=== PATIENT | female | born 1970 | race Caucasian/White ===

== ENCOUNTER → 2019-11-26 07:56 | Outpatient (CLI) | payer OTHER, SELFPAY ==
--- NOTE | ~2019-11-26 | MR_ITS ---
EXAMINATION: MR foot RT wo con DATE: 11/26/2019 08:58 INDICATION: Ruptured sesamoid apparatus at the right foot presenting with pain and numbness at the gr eat toe. TECHNIQUE: Magnetic resonance imaging (MRI) of the right fore/mid foot was performed without intraven ous contrast. Sequences included sagittal T1-weighted FSE, sagittal fluid sensitive FSE STIR, coronal PD-weighted FS FSE, coronal T1-weighted FSE, axial PD-weighted FS FSE, and axial PD-weighted FSE. COMPARISON: None FINDINGS: There is a high-grade partial if not complete tear of the ulnar collateral ligament complex of the fi rst metatarsophalangeal joint with minimal medial subluxation and varus angulation at the first metat arsophalangeal joint. The tear involves the lateral aspect of the plantar plate with mild proximal re traction of the fibular sesamoid relative to the normally positioned tibial sesamoid. The medial darryl ateral ligament and medial side of the plantar plate remains intact. There is callus formation and periostitis centered at the distal diaphysis of the second metatarsal w ith increased signal in the medial sided cortex and underlying marrow edema consistent with high-grad e stress injury/incomplete nondisplaced stress fracture. Otherwise normal marrow signal throughout. J oint spaces are relatively preserved. Likely reactive small joint effusion at the first metatarsophal angeal joint. Lisfranc ligament complex and remaining collateral ligament complexes at the remaining metatarsophalangeal joints and interphalangeal joints are normal. Aside from the previous noted later al sided plantar plate tear at the base of the first proximal phalanx the visualized portions of the flexor and extensor tendons are normal. Intrinsic musculature of the foot is unremarkable aside from the edema in the musculature along the second metatarsal diaphysis. IMPRESSION: 1. Mild hallux varus resulting from a tear of the first metatarsophalangeal medial collateral ligamen t complex and medial side of the plantar plate. 2. High-grade stress injury/incomplete stress fracture at the distal diaphysis of the second metatars al. Reviewed, dictated and finalized at location B. IMPRESSION: 1. Mild hallux varus resulting from a tear of the first metatarsophalangeal med ial collateral ligament complex and medial side of the plantar plate. 2. High-grade stress injury/incomplete stress fracture at the distal diaphysis of the second metatarsal.
== END ==
PROVIDERS: Visit Provider Podiatrist Foot & Ankle Surgery
DX: S96.811A Strain of other specified muscles and tendons at ankle and foot level, right foot, initial encounter (principal); M84.374A Stress fracture, right foot, initial encounter for fracture
CPT/HCPCS: 73718

== ENCOUNTER → 2019-12-13 15:21 | Outpatient (CLI) | payer OTHER, SELFPAY ==
--- NOTE | ~2019-12-13 | XR_ITS ---
EXAMINATION: XR humerus RT DATE: 12/13/2019 15:45 INDICATION: Right humerus pain. TECHNIQUE: 2 views of right humerus were obtained. COMPARISON: None. FINDINGS: Bone alignment is normal. No fracture. Glenohumeral joint is normal. There is mild acromioc lavicular joint osteoarthritis. IMPRESSION: 1. Mild right acromioclavicular joint osteoarthritis. Reviewed, dictated and finalized at location A.
== END ==
PROVIDERS: PCP Family Medicine; Visit Provider Family Medicine
DX: M19.011 Primary osteoarthritis, right shoulder (principal)
CPT/HCPCS: 73060

== ENCOUNTER 2019-12-14 15:12 | Outpatient (CLI) | payer OTHER, SELFPAY ==
--- NOTE | ~2019-12-14 | MM_ITS ---
EXAMINATION: MM screening miley BI w lashay HISTORY: Screening mammogram TECHNIQUE: Craniocaudal and mediolateral oblique 3-D tomosynthesis images were obtained and synthetic 2-D images were generated. CAD analysis was submitted and interpreted. COMPARISON: 11/02/2018, 10/14/2017, 10/01/2016 bilateral digital screening mammogram examinations BREAST PARENCHYMAL COMPOSITION: There are scattered areas of fibroglandular density. FINDINGS: . There is no evidence of suspicious mass, calcification, or architectural distortion to knox ggest malignancy in either breast. There has been no suspicious interval change. IMPRESSION: 1. No mammographic evidence of malignancy. 2. Recommend routine screening mammography in one year. BI-RADS Category 1: Negative Reviewed, dictated and finalized at location A.
== END 2019-12-14 15:13 | disposition home or self-care (01) ==
PROVIDERS: PCP Family Medicine; Visit Provider Family Medicine
DX: Z12.31 Encounter for screening mammogram for malignant neoplasm of breast (principal)
CPT/HCPCS: 77063; 77067

== ENCOUNTER → 2020-05-29 00:22 | Outpatient (CLI) | payer OTHER, SELFPAY ==
[2020-05-29 19:08] LABS: SARS-CoV-2 RNA PCR Negative
== END ==
PROVIDERS: PCP Family Medicine; Visit Provider Podiatrist Foot & Ankle Surgery
DX: Z01.812 Encounter for preprocedural laboratory examination (principal); Z20.822 Contact with and (suspected) exposure to COVID-19
CPT/HCPCS: C9803; U0003; U0005

== ENCOUNTER 2020-05-29 09:04 | Outpatient (CLI) | payer OTHER, SELFPAY ==
--- NOTE | 2020-05-29 09:09 | ECG_ITS ---
Measurements Intervals [place] Rate: 69 P: 36 WV: 141 QRS: 3 QRSD: 81 T: 22 QT: 374 QTc: 402 Interpretive Statements SINUS RHYTHM LOW QRS VOLTAGE IN PRECORDIAL LEADS BORDERLINE R WAVE PROGRESSION, ANTERIOR LEADS BASELINE ARTIFACT- II, III, AVF BORDERLINE ECG Electronically Signed On 05-29-2020 9:30:38 THERAPIST by Narciso Henao D.O.
== END 2020-05-29 09:05 | disposition home or self-care (01) ==
PROVIDERS: Visit Provider Podiatrist Foot & Ankle Surgery
DX: Z01.818 Encounter for other preprocedural examination (principal); E11.9 Type 2 diabetes mellitus without complications
CPT/HCPCS: 93005

== ENCOUNTER 2020-06-01 00:22 | Day surgery (SDC) | payer OTHER, SELFPAY ==
[2020-05-28 13:19] VITALS: BMI 33.0
--- NOTE | 2020-05-31 13:39 | P.PNAN_ITS ---
Anes - Initial Pre Proc Eval Procedure: Operation Date: 06/01/20 07:30 Proposed Procedures p Arthrodesis Of The First Metatarsal Phalangeal Joint, Right Foot - Simon Sykes JR, MD Date/Time: 05/31/20 13:39 Surgeon: Simon Sykes JR, MD Pre Op Diagnosis: Jessica Medrano Right Foot Patient Data Age: 50 Gender: F Height: 1.57 m Weight: 81.8 kg Allergies Allergy/AdvReac Type Severity Reaction Status Date / Time No Known Allergies Allergy Mild Verified 05/28/20 13:10 Home Medications Medication Instructions Recorded Confirmed Type alprazolam 0.5 mg PO DAILY PRN 05/28/20 05/28/20 History cholecalciferol (vitamin D3) 50 mcg PO DAILY 05/28/20 05/28/20 History [Vitamin D3] mirabegron [Myrbetriq] 50 mg PO DAILY 05/28/20 05/28/20 History PMFSH Past Medical History Medical History (Updated 05/31/20 @ 13:40 by Jesús Roldan MD) Diabetes Obesity Osteoarthritis Social History Social History Smoking status: Former smoker Spiritual care concerns: No Anes - Eval Final PreProcedure Day of Procedure 05/31/20 13:39 Patient weight: obese Heart: regular rate and rhythm Lungs: clear to auscultation and normal air movement Airway: Mallampati scale class II Neurological: alert and oriented Last oral intake: >/= 8 hours ASA classification: III Emergent: no Anesthetic plan: proceed Anesthesia type and monitoring: general LMA Informed Consent: The patient's anesthetic plan and its attendant risks and benefits were discussed with the patient/family/POA. Questions were solicited an d answers provided to the satisfaction of the patient/family/POA.
[2020-06-01] VITALS (10 sets, daily range): BP systolic 94–126; BP diastolic 52–83; PULSE 74–92; RESP 12–21; TEMP 36.6–36.7; O2SAT 94–100; BMI 32.1
--- NOTE | ~2020-06-01 | XR_ITS ---
EXAMINATION: XR surgery orthopedic DATE: 06/01/2020 08:30 INDICATION: Right foot arthrodesis TECHNIQUE: Dorsal plantar and lateral fluoroscopic images of the right forefoot were obtained during procedure performed by Dr. Sykes. Radiologist was not present for the imaging or procedure. The am ount of fluoroscopy time used during this procedure was 0.1 minutes. COMPARISON: MRI dated 11/26/2019 FINDINGS: Right first metatarsophalangeal arthrodesis with dorsal plate and screw fixation. Alignment of the gr eat toe appears near-anatomic. The second toe is clawed. There is cortical thickening along the media l side of the neck of the second metatarsal likely related to previous noted stress injury. No acute fractures identified. Mild osteoarthritis at the first interphalangeal joint. IMPRESSION: 1. Expected appearance post first metatarsophalangeal arthrodesis with dorsal plate and screw fixatio n. 2. Cortical thickening consistent with chronic stress injury at the neck of the second metatarsal. Reviewed, dictated and finalized at location B. 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 Expected appearance post first metatarsophalangeal arthrodesis with dorsal p late and screw fixation. 2. Cortical thickening consistent with chronic stress injury at the neck of the second metatarsal.
--- NOTE | 2020-06-01 06:46 | WPDANESEPPF ---
Anes - Initial Pre Proc Eval Procedure: Operation Date: 06/01/20 07:30 Proposed Procedures p Arthrodesis Of The First Metatarsal Phalangeal Joint, Right Foot - Simon Sykes JR, MD Date/Time: 06/01/20 06:46 Surgeon: Simon Sykes JR, MD Pre Op Diagnosis: Jessica Medrano Right Foot Patient Data Age: 50 Gender: F Height: 5 ft 2 in Weight: 81.8 kg Allergies Allergy/AdvReac Type Severity Reaction Status Date / Time No Known Allergies Allergy Mild Verified 05/28/20 13:10 Home Medications Medication Instructions Recorded Confirmed Type alprazolam 0.5 mg PO DAILY PRN 05/28/20 05/28/20 History cholecalciferol (vitamin D3) 50 mcg PO DAILY 05/28/20 05/28/20 History [Vitamin D3] mirabegron [Myrbetriq] 50 mg PO DAILY 05/28/20 05/28/20 History Patient hx anesthesia problems: other (early awakening) Family hx anesthesia problems: none [facility] Past Medical History Medical History Diabetes Obesity Osteoarthritis Social History Social History Smoking status: Former smoker Living arrangements: with family Spiritual care concerns: No Anes - Eval Final PreProcedure Day of Procedure 06/01/20 06:46 Patient weight: obese Heart: regular rate and rhythm Lungs: clear to auscultation Airway: Mallampati scale class II Neurological: alert and oriented Last oral intake: >/= 8 hours ASA classification: III Emergent: no Anesthetic plan: proceed Anesthesia type and monitoring: general LMA and standard monitoring Informed Consent: The patient's anesthetic plan and its attendant risks and benefits were discussed with the patient/family/POA. Questions were solicited and answers provided to the satisfaction of the patient/family/POA.
[2020-06-01] MEDS: LACTATED RINGERS 1,000 ML 30 ML IV CONT ×2 (07:12→08:54)
--- NOTE | 2020-06-01 07:14 | WPDHPUPDATE1 ---
History and Physical Update Update Date/Time: 06/01/20 07:14 History and Physical has been reviewed, including an updated exam of the patient. There are NO changes in the patient's condition. Risks, benefits, and alternatives have been discussed and questions answered. Patient agrees to proceed with procedure.
[2020-06-01 07:19] LABS: Glucose Point of Care 119 (65-105)
[2020-06-01] MEDS: ceFAZolin 2 GM/D5W 50 ML 2 GM/50 ML BAG IVPB (07:23)
--- NOTE | 2020-06-01 08:56 | PM.PROC ---
Procedure Note - Detailed Date of procedure: 06/01/20 Pre-op diagnosis: Jessica Medrano Right Foot Hallux Varus deformity right foot Post-op diagnosis: same Procedure performed: Arthrodesis of the first metatarsal phalangeal joint right foot Implants: [employer] Cross check plate with one 3.5mm lag screw with four 2.7mm locking screw Anesthesia: GLMA and local Surgeon: Simon Sykes JR, DPM Estimated blood loss (mL): 1 Drains: No Packing: No Pathology: none sent Complications: No immediate complications Condition: stable Disposition: same day Findings: PROCEDURE IN DETAIL: Under mild sedation, the patient was brought into the operating room, placed on the operating table in supine position. A pneumatic ankle tourniquet was placed about the patient's right ankle. Following general LMA, a local anesthetic block was obtained about the foot and ankle utilizing 20 cc of Exparel. The foot was then scrubbed, prepped, and draped in the usual aseptic manner. An Esmarch bandage was then used to exsanguinate the patient's foot and the pneumatic ankle tourniquet was then inflated. Surgery began in the following manner: Attention was directed to the dorsal aspect of the 1st metatarsophalangeal joint where there was a large osteophyte noted along the dorsomedial aspect of the joint. The incision was made starting along the central shaft of the 1st metatarsal and extending just proximal to the interphalangeal joint of the hallux. The incision was continued deep down through the subcutaneous tissues using sharp and blunt dissection. All bleeders were cauterized as necessary. At this point, the dissection was continued down to the level of the periosteum and capsular structures overlying the 1st metatarsophalangeal joint. A full length periosteum and capsular incision was made just medial to the extensor hallucis longus tendon. The periosteum and capsular structures were freed from the base of the proximal phalanx as well as the distal 1st metatarsal. At this point, the 1st metatarsophalangeal joint was identified. There was almost complete loss of articular cartilage to the head of the 1st metatarsal as well as the base of the proximal phalanx. There was significant broadening and hypertrophy of the 1st metatarsophalangeal joint. Utilizing a sagittal bone saw, the hypertrophied 1st metatarsal was resected dorsally, medially, and laterally. A power bur was used to make sure that there were no rough edges and also to further debride the hypertrophic 1st metatarsal. Next, a rongeur was used to resect all hypertrophic base of the proximal phalanx. At this point, the reamer system for the AvistaCHECK system was used to denude the degenerative cartilage from the head of the 1st metatarsal as well as the base of the proximal phalanx. The cartilage and subchondral bone were fully debrided utilizing the reamer system until healthy bleeding bone was noted. Next, a 2-0 drill bit was used to further fenestrate the head of the 1st metatarsal as well as the base of the proximal phalanx in order to allow fusion across the 1st metatarsophalangeal joint. Next, a 0.045 inch K-wire was driven from the medial aspect of the base of the proximal phalanx into the head of the 1st metatarsal in order to serve as temporary fixation. A large steel plate was used to make sure that the hallux was in a rectus position both in the sagittal plane as well as the frontal and transverse plane. Excellent position of the hallux was noted. Next, a CrossCHECK plate was placed atop the 1st metatarsophalangeal joint held in position with Gibbs wires. Utilizing standard principles and techniques, the 2 distal drill holes were drilled and two 2.7 mm fully-threaded locking screws were driven from dorsal to plantar holding the distal aspect of the plate intact. At this point, a lag screw was driven from dorsal distal to proximal plantar across the 1st metatarsophalangeal usman
[2020-06-01] MEDS: fentaNYL CITRATE INJ (*CRX) 100 MCG/2 ML VIAL 25 MCG IV PUSH ×4 (09:06→09:16)
[2020-06-01] MEDS: ONDANSETRON INJ 4 MG/2 ML VIAL IV PUSH (09:43)
[2020-06-01 10:25] LABS: Glucose Point of Care 164 (65-105)
[2020-06-01] MEDS: SCOPOLAMINE 1.5 MG PATCH TRANSDERM (10:26)
== END 2020-06-01 11:35 | disposition home or self-care (01) ==
PROVIDERS: Visit Provider Podiatrist Foot & Ankle Surgery
PROC: (CPT 28750; principal; 2020-06-01 07:30)
DX: M20.31 Hallux varus (acquired), right foot (principal); E11.9 Type 2 diabetes mellitus without complications; M19.90 Unspecified osteoarthritis, unspecified site; E66.9 Obesity, unspecified; Z68.32 Body mass index [BMI] 32.0-32.9, adult; Z87.891 Personal history of nicotine dependence
CPT/HCPCS: 28750; 82948; 93005; A9270; C1713; C9290; C9803; J0690; J1170; J2250; J2405; J2704; J3010; J7120; U0003; U0005

== ENCOUNTER 2020-10-18 10:45 | Outpatient (RCR) | payer OTHER, SELFPAY ==
[2020-10-18 09:48] VITALS: BMI 33.3
[2020-10-18 09:50] VITALS: BMI 33.3
== END 2021-01-07 10:33 | disposition home or self-care (01) ==
LOC: ANHDMC 10:45
PROVIDERS: PCP Family Medicine; Visit Provider Family Medicine
DX: E11.9 Type 2 diabetes mellitus without complications (principal); Z71.3 Dietary counseling and surveillance; Z71.89 Other specified counseling
CPT/HCPCS: 97802; G0108

== ENCOUNTER 2021-01-12 08:36 | Outpatient (CLI) | payer OTHER, SELFPAY ==
--- NOTE | ~2021-01-12 | MM_ITS ---
EXAMINATION: MM screening miley BI w lashay HISTORY: Screening mammogram TECHNIQUE: Craniocaudal and mediolateral oblique 3-D tomosynthesis images were obtained and synthetic 2-D images were generated. CAD analysis was submitted and interpreted. COMPARISON: 12/14/2019, 11/02/2018, 10/14/2017 bilateral digital screening mammogram examinations. BREAST PARENCHYMAL COMPOSITION: There are scattered areas of fibroglandular density. FINDINGS: There is no evidence of suspicious mass, calcification, or architectural distortion to sugg est malignancy in either breast. There has been no suspicious interval change. IMPRESSION: 1. No mammographic evidence of malignancy. 2. Recommend routine screening mammography in one year. BI-RADS Category 1: Negative Reviewed, dictated and finalized at location A.
== END 2021-01-12 08:37 | disposition home or self-care (01) ==
LOC: ANHIMG 08:40
PROVIDERS: PCP Family Medicine
DX: Z12.31 Encounter for screening mammogram for malignant neoplasm of breast (principal)
CPT/HCPCS: 77063; 77067

== ENCOUNTER 2022-01-14 15:43 | Outpatient (CLI) | payer OTHER, SELFPAY ==
--- NOTE | ~2022-01-14 | MM_ITS ---
EXAMINATION: MM screening miley BI w lashay HISTORY: Screening TECHNIQUE: Craniocaudal and mediolateral oblique 3-D tomosynthesis images were obtained and synthetic 2-D images were generated. CAD analysis was submitted and interpreted. COMPARISON: Comparison to multiple prior studies sequentially, with oldest reviewed study dated 07/2016. BREAST PARENCHYMAL COMPOSITION: Breast composed of scattered areas of fibroglandular density FINDINGS: There is no evidence of suspicious mass, calcification, or architectural distortion to sugg est malignancy in either breast. There has been no suspicious interval change. IMPRESSION: 1. No mammographic evidence of malignancy. 2. Recommend routine screening mammography in one year. BI-RADS Category 1: Negative Reviewed, dictated and finalized at location A.
== END 2022-01-14 15:44 | disposition home or self-care (01) ==
PROVIDERS: PCP Family Medicine; Visit Provider Family Medicine
DX: Z12.31 Encounter for screening mammogram for malignant neoplasm of breast (principal)
CPT/HCPCS: 77063; 77067

== ENCOUNTER → 2022-12-02 15:10 | Outpatient (CLI) | payer OTHER, SELFPAY ==
--- NOTE | ~2022-12-02 | XR_ITS ---
EXAMINATION: XR nasal bones min 3V DATE: 12/02/2022 16:05 INDICATION: Nose pain. TECHNIQUE: 3 views of the nasal bones were obtained. COMPARISON: None. FINDINGS: Bone alignment is normal. No fracture. IMPRESSION: 1. No fracture. Reviewed, dictated and finalized at location A. IMPRESSION: 1. No fracture.
== END ==
PROVIDERS: PCP Family Medicine; Visit Provider Family Medicine
DX: S09.92XA Unspecified injury of nose, initial encounter (principal); X58.XXXA Exposure to other specified factors, initial encounter
CPT/HCPCS: 70160

== ENCOUNTER 2023-04-18 07:33 | Outpatient (CLI) | payer OTHER, SELFPAY ==
--- NOTE | ~2023-04-18 | MM_ITS ---
EXAMINATION: MM screening [facility] BI w lashay HISTORY: Screening mammogram TECHNIQUE: Craniocaudal and mediolateral oblique 3-D tomosynthesis images were obtained and synthetic 2-D images were generated. CAD analysis was submitted and interpreted. COMPARISON: 01/14/2022, 01/12/2021, 12/14/2019 BREAST PARENCHYMAL COMPOSITION: There are scattered areas of fibroglandular density. FINDINGS: No suspicious mass, calcification, or architectural distortion are identified in either breanna ast to suggest malignancy. There has been no suspicious interval change. IMPRESSION: 1. No mammographic evidence of malignancy. 2. Recommend routine screening mammography in one year. BI-RADS Category 1: Negative Reviewed, dictated and finalized at location A. 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
== END 2023-04-18 07:34 | disposition home or self-care (01) ==
LOC: ANHIMG 07:36
PROVIDERS: PCP Family Medicine; Visit Provider Family Medicine
DX: Z12.31 Encounter for screening mammogram for malignant neoplasm of breast (principal)
CPT/HCPCS: 77063; 77067

== ENCOUNTER 2023-08-27 07:35 | Outpatient (CLI) | payer OTHER, SELFPAY ==
--- NOTE | ~2023-08-27 | XR_ITS ---
EXAMINATION: XR hip RT min 2V DATE: 08/27/2023 07:56 INDICATION: Right hip pain. TECHNIQUE: 2 views of right hip were obtained. COMPARISON: None. FINDINGS: Bone alignment is normal. No fracture. There is mild right hip osteoarthritis. Osteitis pub is is noted. IMPRESSION: 1. Mild right hip osteoarthritis. Reviewed, dictated and finalized at location A.
--- NOTE | ~2023-08-27 | XR_ITS ---
EXAMINATION: XR lumbar spine 2-3V DATE: 08/27/2023 07:56 INDICATION: Low back pain. TECHNIQUE: 3 views of lumbar spine were obtained. COMPARISON: None. FINDINGS: There is 4 degrees dextrocurvature lumbar spine. Vertebral body heights are normal. Interve rtebral disc heights are normal in lumbar spine. There are endplate osteophytes at multiple levels. T here is multilevel [id number] facet joint osteophytes. IMPRESSION: 1. Mild lumbar spondylosis. Reviewed, dictated and finalized at location A. IMPRESSION: 1. Mild lumbar spondylosis.
== END 2023-08-27 07:36 ==
LOC: MICIMG 07:36
PROVIDERS: PCP Physician Assistant; Visit Provider Physician Assistant
DX: M25.551 Pain in right hip (principal); M43.06 Spondylolysis, lumbar region; M16.11 Unilateral primary osteoarthritis, right hip
CPT/HCPCS: 72100; 73502

== ENCOUNTER 2024-05-05 15:20 | Outpatient (CLI) | payer OTHER, SELFPAY ==
--- NOTE | ~2024-05-05 | MM_ITS ---
EXAMINATION: MM screening miley BI w lashay HISTORY: Screening TECHNIQUE: Craniocaudal and mediolateral oblique 3-D tomosynthesis images were obtained and synthetic 2-D images were generated. CAD analysis was submitted and interpreted. COMPARISON: Comparison to multiple prior studies sequentially, with oldest reviewed study dated 10/14. BREAST PARENCHYMAL COMPOSITION: Dense: The breasts are heterogeneously dense, which may obscure small masses FINDINGS: There is no evidence of suspicious mass, calcification, or architectural distortion to sugg est malignancy in either breast. There has been no suspicious interval change. IMPRESSION: 1. No mammographic evidence of malignancy. 2. Recommend routine screening mammography in one year. BI-RADS Category 1: Negative Reviewed, dictated and finalized at location B. [facility]
--- OUTSIDE RECORDS SUMMARY | 2024-05-05 15:25 | XMS_ITS | Encounter Summary ---
Author Organization [facility] Address [address] [place] [address] Care Team Providers Care Alligator Shear Operator Name Role Phone Yeimy Nielsen MD Primary Care Provider [phone] Encounter Details Date Type Department Care Team (Late st Contact Info) Description 04/09/2022 Telephone [facility] [address] [place] [address], [facility] [place] [address] Ronna Rojas PA [address] [place] [address] [address] [place] [address] Social History Tobacco Use Types Packs/Day Years Used Date Smoking Tobacco: Never Smokeless Tobacco: Former Alcohol Use Standard Drinks/Week Comments Yes 0 (1 standard drink = 0.6 oz pur e alcohol) Sex and Gender Information Value Date Recorded Sex Assigned at Not on file Gender Identity Not on file Sexual Orientation Not on file documented as of this encounter Miscellaneous Notes * Telephone Encounter - Ronna Rojas PA - 04/09/2022 2:54 PM CST I could see her on Apr 18 at 12 48 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 [id number] PCP - General 10/21/20 documented as of this encounter
--- OUTSIDE RECORDS SUMMARY | 2024-05-05 15:25 | XMS_ITS | Data Portability ---
Author Organization [facility] SHEPP[facility] Address [address] [place] [address] Care Team Providers Care Bandage Maker Name Role Phone KIMANI SANCHEZ Primary Care Provider Unavailab le Assessment Encounter Date Assessment Date Assessment LastModified by Organization Details LastModified Time 08/25/2023 08/25/2023 Mammogram just UTD this year. pap smear UTD all clear Eye exam UTD recent dental utd in may colonoscopy 5 years ago at [facility], all clear, next due age 58. Not available 08/25/2023 15:03:21 02/22/2024 02/22/2024 Mammogram just UTD this year. pap smear UTD all clear Eye exam UTD recent dental utd in may colonoscopy 5 years ago at [facility], all clear, next due age 58. Not available 02/22/2024 17:04:20 Plan of Treatment Reminders Order Date Submit Date Provider Last Modified By Organization Details Last Modified Time Details Appointments ANY 15 2024 08:15A M HUSSAIN Goss Not available Not available Not available Lab HbA1c (hemoglob in A1c), blood 2023 024 SATYA [facility], [address], [address], [place], [address], 09/15/2023 09:40:11 TSH + free T4, serum 2023 024 SATYA [facility], [address], [address], [place], [address], 09/15/2023 09:40:09 lipid panel, serum 2023 024 SATYA [facility], [address], [address], [place], [address], 09/15/2023 09:40:08 CBC w/ auto diff 2023 024 SATYA [facility], [address], [address], [place], [address], 09/15/2023 09:40:11 CMP, serum or plasma 2023 024 SATYA [facility], [address], [address], [place], [address], 09/15/2023 09:40:10 vitamin B12 + folate, serum or blood 2023 024 SATYA [facility], [address], [address], [place], [address], 09/15/2023 09:40:10 TSH + free T4, serum 2023 025 [email or web address] [facility], [address], [address], [place], [address], 02/22/2024 17:02:20 CBC w/ auto diff 2023 025 [email or web address] [facility], [address], [address], [place], [address], 02/22/2024 17:02:20 CMP, serum or plasma 2023 025 [email or web address] [facility], [address], [address], [place], [address], 02/22/2024 17:02:20 vitamin B12 + folate, serum or blood 2023 025 [email or web address] [facility], [address] [facility] [address], [address], [place], [address], 02/22/2024 17:02:20 lipid panel, serum 2023 025 [email or web address] [facility], [address] [facility], [address], [place], [address], 02/22/2024 17:02:20 HbA1c (hemoglob in A1c), blood 2023 025 [email or web address] [facility], [address] [facility] [address], [address], [place], [address], 02/22/2024 17:02:20 microalbu min, urine 2023 025 [email or web address] [facility], [address] [facility] [address], [address], [place], [address], 02/22/2024 17:02:20 urinalysi s, complete 2023 024 SATYA [facility], [address] [facility] [address], [place], [address], 02/22/2024 17:02:32 Referral None recorded. Procedures None recorded. Surgeries None recorded. Imaging XR, hip, unilatera l, 2 or 3 view 2023 024 [email or web address] Not available 09/08/2023 14:25:02 XR, lumbar spine 2023 024 SATYA Not available 08/27/2023 12:40:08 Medication Orders Myrbetriq 50 mg tablet,ex tended release 2023 024 [id number], [address], [place], [place], [id number], 02/22/2024 17:02:28 Myrbetriq 50 mg tablet,ex tended release 2023 024 SATYA [facility], [address] [place] [address], [address], 02/22/2024 17:02:22 Patient TargetsNo targets recorded. Patient Instructions Encounter Date Encounter Id Patient Instructions Last Modified By Organization Details Last Modified Time 02/22/2024 [id number] A healthy lifestyle: care instructions Not available 02/22/2024 17:02:20 Reason for Referral None Reported. Results Created Date Observation Date Name Description Value Unit Range Abnormal Flag Note LastModifiedBy Organization Detail LastModifiedTime 09/14/19 24 09/15/2023 LIPID PANEL W/ CHOL/ HDL RATIO cholesterol, total 199 mg/dL 100-19 9 Not Available [facility] ([facility]) [address] [place], [address], 09/15/2023 09:40:08 09/14/19 24 09/15/2023 LIPID PANEL W/ CHOL/ HDL RATIO triglyceride s 86 mg/dL 0-149 Not Available [facility] ([facility]) [address] [place], [address], 09/15/2023 09:40:08 09/14/19 24 09/15/2023 LIPID PANEL W/ CHOL/ HDL RATIO HDL cholesterol 53 mg/dL >39 Not Available [facility] ([facility]) [address] [place], [address], 09/15/2023 09:40:08 09/14/19 24 09/15/2023 LIPID PANEL W/ CHOL/ HDL RATIO VLDL cholesterol satya 16 mg/dL 5-40 Not Available [facility] ([facility]) [address] [place], [address], 09/15/2023 09:40:08 09/14/19 24 09/15/2023 LIPID PANEL W/ CHOL/ HDL RATIO LDL chol calc ([facility]) 130 mg/dL 0-99 above high normal Not Available [facility] ([facility]) [address] [place], [address], 09/15/2023 09:40:08 09/14/19 24 09/15/2023 LIPID PANEL W/ CHOL/ HDL RATIO T. chol/HDL ratio 3.8 ratio 0.0-4. 4 T. Chol/ HDL Ratio Men Women 1/2 Avg.R isk 3.4 3.3 Avg.R isk 5.0 4.4 2X Avg.R isk 9.6 7.1 3X Avg.R isk 23.4 11.0 Not Available [facility] ([facility]) [address] [place], [address], 09/15/2023 09:40:08 09/14/19 24 09/15/2023 TSH+F REE T4 TSH 1.990 uIU/m L 0.450- 4.500 Not Available [facility] ([facility]) [address] [place], [address], 09/15/2023 09:40:09 09/14/19 24 09/15/2023 TSH+F REE T4 T4,free(dire ct) 1.00 NG/dL 0.82-1 .77 Not Available [facility] ([facility]) [address] [place], [address], 09/15/2023 09:40:09 09/14/19 24 09/15/2023 COMP. METAB OLIC PANEL (14) glucose 87 mg/dL 70-99 Not Available [facility] ([facility]) [address] [place], [address], 09/15/2023 09:40:10 09/14/19 24 09/15/2023 COMP. METAB OLIC PANEL (14) BUN 20 mg/dL 6-24 Not Available [facility] ([facility]) [address] [place], [address], 09/15/2023 09:40:10 09/14/19 24 09/15/2023 COMP. METAB OLIC PANEL (14) creatinine 0.92 mg/dL 0.57-1 .00 Not Available [facility] ([facility]) [address] [facility], [place], [address], 09/15/2023 09:40:10 09/14/19 24 09/15/2023 COMP. METAB OLIC PANEL (14) eGFR 74 mL/mi n/1.7 3 >59 Not Available [facility] ([facility]) [address] [facility], [place], [address], 09/15/2023 09:40:10 09/14/19 24 09/15/2023 COMP. METAB OLIC PANEL (14) BUN/creatini ne ratio 22 9-23 Not Available [facility] ([facility]) [address] [facility], [place], [address], 09/15/2023 09:40:10 09/14/19 24 09/15/2023 COMP. METAB OLIC PANEL (14) sodium 138 mmol/ L 134-14 4 Not Available [facility] ([facility]) [address] [place], [address], 09/15/2023 09:40:10 09/14/19 24 09/15/2023 COMP. METAB OLIC PANEL (14) potassium 4.8 mmol/ L 3.5-5. 2 Not Available [facility] ([facility]) [address] [facility], [place], [address], 09/15/2023 09:40:10 09/14/19 24 09/15/2023 COMP. METAB OLIC PANEL (14) chloride 101 mmol/ L 96-106 Not Available [facility] ([facility]) [address] [facility], [place], [address], 09/15/2023 09:40:10 09/14/19 24 09/15/2023 COMP. METAB OLIC PANEL (14) carbon dioxide, total 25 mmol/ L 20-29 Not Available [facility] ([facility]) [address] [facility], [place], [address], 09/15/2023 09:40:10 09/14/19 24 09/15/2023 COMP. METAB OLIC PANEL (14) calcium 9.9 mg/dL 8.7-10 .2 Not Available [facility] ([facility]) [address] [facility], [place], [address], 09/15/2023 09:40:10 09/14/19 24 09/15/2023 COMP. METAB OLIC PANEL (14) protein, total 6.9 g/dL 6.0-8. 5 Not Available [facility] ([facility]) [address] [facility], [place], [address], 09/15/2023 09:40:10 09/14/19 24 09/15/2023 COMP. METAB OLIC PANEL (14) albumin 4.4 g/dL 3.8-4. 9 Not Available [facility] ([facility]) [address] [facility], [place], [address], 09/15/2023 09:40:10 09/14/19 24 09/15/2023 COMP. METAB OLIC PANEL (14) globulin, total 2.5 g/dL 1.5-4. 5 Not Available [facility] ([facility]) [address] [facility], [place], [address], 09/15/2023 09:40:10 09/14/19 24 09/15/2023 COMP. METAB OLIC PANEL (14) bilirubin, total 0.5 mg/dL 0.0-1. 2 Not Available [facility] ([facility]) [address] [facility] [place], [address], 09/15/2023 09:40:10 09/14/19 24 09/15/2023 COMP. METAB OLIC PANEL (14) alkaline phosphatase 66 IU/L 44-121 Not Available [facility]) [address] [facility], [place], [address], 09/15/2023 09:40:10 09/14/19 24 09/15/2023 COMP. METAB OLIC PANEL (14) AST (SGOT) 14 IU/L 0-40 Not Available [facility] ([facility]) [address] [facility] [place], [address], 09/15/2023 09:40:10 09/14/19 24 09/15/2023 COMP. METAB OLIC PANEL (14) ALT (SGPT) 10 IU/L 0-32 Not Available [facility] ([facility]) [address] [facility] [place], [address], 09/15/2023 09:40:10 09/14/19 24 09/15/2023 VITAM IN B12 AND FOLAT E vitamin B12 511 pg/mL 232-12 45 Not Available [facility] ([facility]) [address] [facility], [place], [address], 09/15/2023 09:40:10 09/14/19 24 09/15/2023 VITAM IN B12 AND FOLAT E folate (folic acid), serum 8.4 NG/mL >3.0 A serum folat e solomon ntrat ion of less than 3.1 ng/mL is consi dered to repre sent clini satya defic iency . Not Available [facility] ([facility]) [address] [facility], [place], [address], 09/15/2023 09:40:10 09/14/19 24 09/15/2023 HEMOG LOBIN A1C hemoglobin A1C 5.9 % 4.8-5. 6 above high normal Predi abete s: 5.7 - 6.4 Diabe deborah: >6.4 Glyce jayesh contr ol for adult s with diabe deborah: <7.0 Not Available [facility] ([facility]) [address] [place], [address], 09/15/2023 09:40:11 09/14/19 24 09/15/2023 CBC WITH DIFFE RENTI AL/PL ATELE T WBC 4.7 x10e3 /uL 3.4-10 .8 Not Available [facility] ([facility]) [address] [facility], [place], [address], 09/15/2023 09:40:11 09/14/19 24 09/15/2023 CBC WITH DIFFE RENTI AL/PL ATELE T RBC 4.45 x10e6 /uL 3.77-5 .28 Not Available [facility] ([facility]) [address] [facility], [place], [address], 09/15/2023 09:40:11 09/14/19 24 09/15/2023 CBC WITH DIFFE RENTI AL/PL ATELE T hemoglobin 12.6 g/dL 11.1-1 5.9 Not Available [facility] ([facility]) [address] [facility], [place], [address], 09/15/2023 09:40:11 09/14/19 24 09/15/2023 CBC WITH DIFFE RENTI AL/PL ATELE T hematocrit 38.8 % 34.0-4 6.6 Not Available [facility] ([facility]) [address] [facility], [place], [address], 09/15/2023 09:40:11 09/14/19 24 09/15/2023 CBC WITH DIFFE RENTI AL/PL ATELE T MCV 87 fL 79-97 Not Available [facility] ([facility]) [address] [facility], [place], [address], 09/15/2023 09:40:11 09/14/19 24 09/15/2023 CBC WITH DIFFE RENTI AL/PL ATELE T MCH 28.3 pg 26.6-3 3.0 Not Available [facility] ([facility]) [address] [facility], [place], [address], 09/15/2023 09:40:11 09/14/19 24 09/15/2023 CBC WITH DIFFE RENTI AL/PL ATELE T MCHC 32.5 g/dL 31.5-3 5.7 Not Available [facility] ([facility]) [address] [facility], [place], [address], 09/15/2023 09:40:11 09/14/19 24 09/15/2023 CBC WITH DIFFE RENTI AL/PL ATELE T RDW 13.0 % 11.7-1 5.4 Not Available [facility] ([facility]) [address] [facility], [place], [address], 09/15/2023 09:40:11 09/14/19 24 09/15/2023 CBC WITH DIFFE RENTI AL/PL ATELE T platelets 271 x10e3 /uL 150-45 0 Not Available [facility] ([facility]) [address] [facility], [place], [address], 09/15/2023 09:40:11 09/14/19 24 09/15/2023 CBC WITH DIFFE RENTI AL/PL ATELE T neutrophils 63 % notest ab. Not Available [facility] ([facility]) [address] [facility], [place], [address], 09/15/2023 09:40:11 09/14/19 24 09/15/2023 CBC WITH DIFFE RENTI AL/PL ATELE T lymphs 25 % notest ab. Not Available [facility] ([facility]) [address] [facility], [place], [address], 09/15/2023 09:40:11 09/14/19 24 09/15/2023 CBC WITH DIFFE RENTI AL/PL ATELE T monocytes 9 % notest ab. Not Available [facility] ([facility]) [address] [facility], [place], [address], 09/15/2023 09:40:11 09/14/19 24 09/15/2023 CBC WITH DIFFE RENTI AL/PL ATELE T eos 2 % notest ab. Not Available [facility] ([facility]) [address] [place], [address], 09/15/2023 09:40:11 09/14/19 24 09/15/2023 CBC WITH DIFFE RENTI AL/PL ATELE T basos 1 % notest ab. Not Available [facility] ([facility]) [address] [place], [address], 09/15/2023 09:40:11 09/14/19 24 09/15/2023 CBC WITH DIFFE RENTI AL/PL ATELE T neutrophils (absolute) 2.9 x10e3 /uL 1.4-7. 0 Not Available [facility] ([facility]) [address] [place], [address], 09/15/2023 09:40:11 09/14/19 24 09/15/2023 CBC WITH DIFFE RENTI AL/PL ATELE T lymphs (absolute) 1.2 x10e3 /uL 0.7-3. 1 Not Available [facility] ([facility]) [address] [place], [address], 09/15/2023 09:40:11 09/14/19 24 09/15/2023 CBC WITH DIFFE RENTI AL/PL ATELE T monocytes(ab solute) 0.4 x10e3 /uL 0.1-0. 9 Not Available [facility] ([facility]) [address] [place], [address], 09/15/2023 09:40:11 09/14/19 24 09/15/2023 CBC WITH DIFFE RENTI AL/PL ATELE T eos (absolute) 0.1 x10e3 /uL 0.0-0. 4 Not Available [facility] ([facility]) [address] [place], [address], 09/15/2023 09:40:11 09/14/19 24 09/15/2023 CBC WITH DIFFE RENTI AL/PL ATELE T baso (absolute) 0.1 x10e3 /uL 0.0-0. 2 Not Available [facility] ([facility]) [address] [facility], [place], [address], 09/15/2023 09:40:11 09/14/19 24 09/15/2023 CBC WITH DIFFE RENTI AL/PL ATELE T immature granulocytes 0 % notest ab. Not Available [facility] ([facility]) [address] [facility], [place], [address], 09/15/2023 09:40:11 09/14/19 24 09/15/2023 CBC WITH DIFFE RENTI AL/PL ATELE T immature grans (abs) 0.0 x10e3 /uL 0.0-0. 1 Not Available [facility] ([facility]) [address] [facility], [place], [address], 09/15/2023 09:40:11 02/13/20 24 02/14/2024 LIPID PANEL W/ CHOL/ HDL RATIO cholesterol, total 194 mg/dL 100-19 9 Not Available [facility] ([facility]) [address] [facility], [place], [address], 02/14/2024 08:13:09 02/13/20 24 02/14/2024 LIPID PANEL W/ CHOL/ HDL RATIO triglyceride s 52 mg/dL 0-149 Not Available [facility] ([facility]) [address] [facility], [place], [address], 02/14/2024 08:13:09 02/13/20 24 02/14/2024 LIPID PANEL W/ CHOL/ HDL RATIO HDL cholesterol 65 mg/dL >39 Not Available [facility]) [address] [facility], [place], [address], 02/14/2024 08:13:09 02/13/20 24 02/14/2024 LIPID PANEL W/ CHOL/ HDL RATIO VLDL cholesterol satya 10 mg/dL 5-40 Not Available [facility] ([facility]) [address] [place], [address], 02/14/2024 08:13:09 02/13/20 24 02/14/2024 LIPID PANEL W/ CHOL/ HDL RATIO LDL chol calc ([facility]) 119 mg/dL 0-99 above high normal Not Available [facility] ([facility]) [address] [place], [address], 02/14/2024 08:13:09 02/13/20 24 02/14/2024 LIPID PANEL W/ CHOL/ HDL RATIO T. chol/HDL ratio 3.0 ratio 0.0-4. 4 T. Chol/ HDL Ratio Men Women 1/2 Avg.R isk 3.4 3.3 Avg.R isk 5.0 4.4 2X Avg.R isk 9.6 7.1 3X Avg.R isk 23.4 11.0 Not Available [facility] ([facility]) [address] [facility], [place], [address], 02/14/2024 08:13:09 02/13/20 24 02/14/2024 HEMOG LOBIN A1C hemoglobin A1C 5.6 % 4.8-5. 6 Predi abete s: 5.7 - 6.4 Diabe deborah: >6.4 Glyce jayesh contr ol for adult s with diabe deborah: <7.0 Not Available [facility] ([facility]) [address] [place], [address], 02/14/2024 08:13:10 08/27/19 24 08/27/2023 XR, lumba r spine No observ ation record ed. SATYA Not Available 2023 17:21:55 Result Notes None recorded. Problems Name Problem SNOMED Code Status Onset Date Resolution Date Notes Provider Name and Address Organization Details Recorded Time Well controlled type 2 diabetes mellitus 407160889 Active 2023 HUSSAIN Goss Attn: Accountin g,[address] [facility], [place], [address], [place] [facility] 4 18:08:53 Generalized anxiety disorder 59578283 Active 2023 HUSSAIN Goss Attn: Accountin g,[address] [facility], [place], [address], [place] [facility] 4 18:08:54 Adult attention deficit hyperactivi ty disorder 701353177 Active 2023 HUSSAIN Goss Attn: Accountin g,[address] [facility], [place], [address], [place] [facility] 4 18:08:55 Overactive urinary bladder 903735545 Active 2023 HUSSAIN Goss Attn: Accountin g,[address] [facility], [place], [address], [place] [facility] 4 18:08:56 Persistent microscopic hematuria 692293968 Active 2023 HUSSAIN Goss Attn: Accountin g,[address] [facility], [place], [address], [place] [facility] 4 18:08:58 Long-term drug therapy Active 2023 HUSSAIN Goss Attn: Accountin g,[address] [facility], [place], [address], [place] [facility] 4 18:08:59 Pain in right hip joint 0557236683250 02 Active 2023 HUSSAIN Goss Attn: Accountin g,[address] [facility], [place], [address], [place] [facility] 4 18:09:49 Body mass index 25-29 - overweight 020795999 Active 2023 HUSSAIN Goss Attn: Accountin g,[address] [facility], [place], [address], [place] [facility] 4 18:10:08 Overweight 868747921 Active 2023 HUSSAIN Goss Attn: Paulette melendez,[address] [facility], [place], [address], [facility] - [facility] 17:04:20 Problem Notes None recorded. Procedures Surgical History None recorded. Imaging Results Imaging Date Name Status LastModified by Organiz ation Details LastModified Time 08/27/2023 XR, lumbar spine completed SATYA Information not available 08/31/2023 17:21:55 Procedure Notes None recorded. Medical Equipment None Reported. Allergies No known drug allergies Medications Name Sig Start Date Stop Date Status Note LastModified by Organization Details LastModified Time methocarbam ol 500 mg tablet active Not Available Not Available Not Available doxycycline hyclate 100 mg capsule TAKE ONE CAPSULE BY MOUTH EVERY 12 HOURS UNTIL ALL TAKEN 08/24 completed Not Available Not Available Not Available paroxetine 10 mg tablet Take 1 tablet every day by oral route for 30 days. active Not Available Not Available No t Available sulfamethox azole 800 mg-trimetho prim 160 mg tablet TAKE 1 TABLET BY MOUTH EVERY 12 HOURS UNTIL ALL TAKEN 08/24 completed Not Available Not Available Not Available triamcinolo ne acetonide 0.1 % topical cream APPLY THIN LAYER TOPICALLY TO THE AFFECTED AREA TWICE DAILY FOR UP TO 4 WEEKS 08/24 completed Not Available Not Available Not Available meloxicam 7.5 mg tablet Take 1 tablet every day by oral route for 15 days. active Not Available Not Available No t Available alprazolam 0.5 mg tablet Take 1 tablet as needed by oral route for 45 days. active Not Available Not Available No t Available phenazopyri dine 100 mg tablet TAKE 1 TABLET BY MOUTH THREE TIMES DAILY FOR 7 DAYS NEEDED FOR BURNING WITH URINATION 08/24 completed Not Available Not Available Not Available dextroamphe tamine-amph etamine ER 10 mg 24hr capsule,ext end release Take 1 capsule every day by oral route for 30 days. active Not Available Not Available No t Available amoxicillin 400 mg/5 mL oral suspension SHAKE LIQUID AND TAKE 11 ML BY MOUTH TWICE DAILY FOR 10 DAYS. DISCARD REMAINDER 02/13 completed Not Available Not Available Not Available azithromyci n 200 mg/5 mL oral suspension SHAKE LIQUID AND TAKE 12.5 ML BY MOUTH DAILY FOR 5 DAYS. DISCARD REMAINDER 02/13 completed Not Available Not Available Not Available ketoconazol e 2 % topical cream APPLY TOPICALLY TO THE AFFECTED AREA EVERY DAY FOR 4 WEEKS 08/24 completed Not Available Not Available Not Available dextroamphe tamine-amph etamine ER 15 mg 24hr capsule,ext end release TAKE 1 CAPSULE BY MOUTH EVERY DAY IN THE MORNING 08/24 completed Not Available Not Available Not Available nitrofurant oin monohydrate /macrocryst als 100 mg capsule TAKE ONE CAPSULE BY MOUTH EVERY 12 HOURS WITH FOOD FOR 7 DAYS 08/24 completed Not Available Not Available Not Available Myrbetriq 50 mg tablet,exte nded release Take 1 tablet every day by oral route. 2023 active Not Available Not Available Not Avai lable Rybelsus 14 mg tablet Take 1 tablet every day by oral route for 90 days. active Not Available Not Available No t Available Vitals Date Recorded Body weight Body mass index (BMI) Body height Heart rate Oxygen saturation Oxygen saturation in Arterial blood by Pulse oximetry Systolic blood pressure Diastolic blood pressure Provider Name and Address Organization Details Last Updated DateTime 4 [address]40.5 5 g 28.5 kg/m2 157.48 cm 84 /min 99 % 99 % 114 mm[Hg] 74 mm[Hg] May Ng MA [facility] 4 14:30:59 Date Recorded Respiratory rate Systolic blood pressure Diastolic blood pressure Systolic blood pressure Diastolic blood pressure Provider Name and Address Organization Details Last Updated DateTime 4 18 /min 90 mm[Hg] 62 mm[Hg] 90 mm[Hg] 70 mm[Hg] HUSSAIN Goss Attn: Paulette melendez,[address] [facility], [place], [address], [facility] 4 15:02:42 Date Recorded Body height Body mass index (BMI) Body weight Respiratory rate Oxygen saturation Oxygen saturation in Arterial blood by Pulse oximetry Heart rate Systolic blood pressure Diastolic blood pressure Provider Name and Address Organization Details Last Updated DateTime 4 157.48 cm 28.3 kg/m2 02400.8 2 g 17 /min 98 % 98 % 84 /min 108 mm[Hg] 78 mm[Hg] Giovanni Calixto MA [place] [facility] 16:42:58 Date Recorded Systolic blood pressure Diastolic blood pressure Provider Name and Address Organization Details Last Updated DateTime 02/22/2024 100 mm[Hg] 70 mm[Hg] HUSSAIN Goss Attn: Accounting,[address] [facility], [place], [address], [place] [facility] 02/22/2024 17:02:06 Social History Question Answer Notes LastModified by Organizat ion Details LastModified Time Tobacco Smoking Status Never Smoker May Ng MA null, [place] [facility] 08/25/2023 14:29:31 Do You Have An Advance Directive? Yes Information not available 02/22/2024 What Is Your Level Of Alcohol Consumption? Occasional Information not available 08/25/2023 Are You Blind Or Do You Have Difficulty Seeing? No Information not available 08/25/2023 What Is Your Level Of Caffeine Consumption? Moderate 2x A Day Information not available 02/22/2024 In The 14 Days Before Symptom Onset, Have You Had Close Contact With A Laboratory-confir med COVID-19 While That Case Was Ill? No Information not available 02/22/2024 In The 14 Days Before Symptom Onset, Have You Had Close Contact With A Person Who Is Under Investigation For COVID-19 While That Person Was Ill? No Information not available 02/22/2024 Have You Been To An Area Known To Be High Risk For COVID-19? No Information not available 02/22/2024 Are You Deaf Or Do You Have Serious Difficulty Hearing? No Information not available 08/25/2023 What Type Of Diet Are You Following? REGULAR Information not available 02/22/2024 Are There Any Guns Present In Your Home? No Information not available 02/22/2024 What Was The Date Of Your Most Recent Tobacco Screening? 02/22/2024 Information not available 02/22/2024 What Is Your Relationship Status? Information not available 08/25/2023 Do You Use Your Seat Belt Or Car Seat Routinely? Yes Information not available 08/25/2023 Do You Have Smoke And Carbon Monoxide Detectors In Your Home? Yes Information not available 02/22/2024 Do You Feel Stressed (tense, Restless, Nervous, Or Anxious, Or Unable To Sleep At Night)? LS2048-5 Information not available 08/25/2023 Do You Use Any Illicit Or Recreational Drugs? No Information not available 02/22/2024 Do You Use Sunscreen Routinely? Yes Information not available 02/22/2024 Has Tobacco Cessation Counseling Been Provided? No Information not available 02/22/2024 Do You Or Have You Ever Used Any Other Forms Of Tobacco Or Nicotine? No Information not available 02/22/2024 Sex: Female Functional Status Question Answer Note LastModified by Organizat ion Details LastModified Time Are you able to care for yourself? Yes Information not available 08/25/2023 What is your exercise level? Occasional Information not available 02/22/2024 Mental Status None recorded. Family History Relationship Description Onset Age of this Age Resolved Age Notes LastModified by Organization Details LastModified Time Father Alcohol abuse [email or web address] Not available 2023 15:09:21 Father Malignant tumor of lung [email or web address] Not available 2023 15:09:42 Father Chronic obstructive pulmonary disease [email or web address] Not available 2023 15:09:57 Sister Malignant tumor of cervix apaytonma Not available 2023 15:09:34 Medical History Condition Response Diabetes Y Other Y Acid Reflux (GERD) Y Gynecological History Statement/Question Response Menses Monthly N Obstetrics History GPAL:G 0 P 0 0 0 0 Immunizations Vaccine Type Date Status Note Provider Nam e and Address Organization Details Recorded Time COVID-19, mRNA, LNP-S, PF, 30 mcg/0.3 mL dose 04/25/2020 completed Giovanni Calixto [place] null, [place] [facility] 02/22/2024 16:39:30 COVID-19, mRNA, LNP-S, PF, 30 mcg/0.3 mL dose 05/21/2020 completed Giovanni Calixto [place], [place] [facility] 02/22/2024 16:39:30 COVID-19, mRNA, LNP-S, PF, 30 mcg/0.3 mL dose 02/07/2021 completed Giovanni Calixto [place], [place] [facility] 02/22/2024 16:39:30 COVID-19, mRNA, LNP-S, PF, 30 mcg/0.3 mL dose, babs-sucrose 11/23/2021 completed Giovanni Calixto [place] [facility] 02/22/2024 16:39:30 Influenza, split virus, quadrivalent, PF 12/27/2020 completed Giovanni Calixto [place] [facility] 02/22/2024 16:39:30 Influenza, split virus, trivalent, PF 01/26/2024 completed CASSI Barron NP Attn: [address] [place], [address], [place] [facility] 01/26/2024 15:55:42 COVID-19, mRNA, LNP-S, PF, 50 mcg/0.5 mL 01/26/2024 completed Yeimy Mcnair [place], [place] [facility] 01/26/2024 15:57:57 Past Encounters Encounter ID Performer Location Encounter Start Date Encounter Closed Date Diagnosis/Indication Diagnosis SNOMED-CT Code Diagnosis ICD10 Code Diagnosis Note [id number] HUSSAIN Goss [facility] [place] [address] [place] [address] 08/25/2023 14:21:52 08/25/2023 15:39:37 Well controlled type 2 diabetes mellitus 116560139 E11.9 stable on Rybelsus 14mg daily. due for a1c Generalize d anxiety disorder 05869663 F41.1 stable on paroxetine 10mg daily. Adult atte ntion deficit hyperactivity disorder 264633736 F90.9 stable on adderall ER 10mg daily from specialist . Long-term drug therapy 479152057 Z79.899 cmp, cbc and b12, folate labs are due Cholesterol screening 27 8595353 Z13.220 fasting lipids due Thyroid di sorder screening 682889152 Z13.29 thyroid panel screening ordered. Overactive urinary bladder 963486706 N32.81 stable on myrbetriq 50mg daily. Persistent microscopic hematuria 127241239 R31.29 has been evaluated by urologist with complete w/u. Adult heal th examination 906532669 Z00.01 new pt wellness completed. Pain in ri ght hip joint 0280785745 58808 M25.551 check xray right hip and also the LS spine to evaluate for right hip joint pain Body mass index 25-29 - overweight 199454081 Z68.28 BMI 28.5 [id number] CASSI Barron NP [facility] [address] [facility] [place] [address] 01/26/2024 15:47:27 01/28/2024 13:11:29 Administration of influenza vaccine 68387180 Z23 Administra tion of SARS-CoV-2 mRNA vaccine 2224280254 Z23 [id number] HUSSAIN Goss [facility] [place] [address] [place] [address] 02/22/2024 16:22:02 02/22/2024 17:12:21 Body mass index 25-29 - overweight 647137842 Z68.28 BMI 28.3 Overweight 768385525 E66 .3 Well contr olled type 2 diabetes mellitus 318695397 E11.9 stable on Rybelsus 14mg daily. 5.6 %, repeat labs again in July with annual albumin urine testing Generalize d anxiety disorder 50144784 F41.1 stable on paroxetine 10mg daily. No acute concerns Adult atte ntion deficit hyperactivity disorder 926836704 F90.9 stable on adderall ER 10mg daily from specialist Overactive urinary bladder 316734058 N32.81 stable on myrbetriq 50mg daily. dr. matthews had started and it works well. We can take over and refill medication Persistent microscopic hematuria 532852013 R31.29 has been evaluated by urologist with complete w/u. Following a complete urinalysis on labs Long-term drug therapy 444467843 Z79.899 cmp, cbc and b12, folate labs are due in July Cholesterol screening 27 3656602 Z13.220 fasting lipids due in July Thyroid di sorder screening 471327110 Z13.29 thyroid panel screening ordered for next set of labs in July Health Concerns Section Related Observation LastModified by Organization Detai ls LastModified Time None Recorded Concern Status LastModified by Organization Details LastModified Time None Recorded Advance Directives Directive Y: Payers Encounter Date Sequence Insurance Name Policy Number Policy Talbert Covered Member ID Talbert Member ID Guarantor Name 08/25/2023 1 [facility] [id number] Joselin Kokotovic [id number] Joselin Kokotovic 08/25/2023 2 [facility] ([id number]) [id number] Ivan Kokotovic [id number] Joselin Kokotovic 01/26/2024 1 [facility] [id number] Joselin Kokotovic [id number] Joselin Kokotovic 01/26/2024 2 [facility] (PPO) [id number] Ivan Kokotovic [id number] Joselin Kokotovich 02/22/2024 1 [facility] [id number] Joselin Kokotovic [id number] Joselin Kokotovich 02/22/2024 2 [facility] (PPO) [id number] Ivan Skylerkotovic [id number] Joselin Kokotovic Notes Date Note Type Note Provider Name and Address Organization Details Recorded Time 08/25/2023 text/html Anxiety/Depressi onR eported bypatient.Notes:sta ble on paroxetine 10mg daily.DiabetesRepor william bypatient.Notes:Typ e 2 diagnosis. on rybelsus 14mg daily. ADHD hx. sees specialist for management on adderall ER 10mg daily. pt takes myrbetriq for overactive bladder. HUSSAIN Goss Attn: [address] [place], [address], [facility] 08/29/2023 18:10:27 02/22/2024 text/html Anxiety/Depressi onR eported bypatient.Notes:sta ble on paroxetine 10mg daily.DiabetesRepor william bypatient.Notes:Typ e 2 diagnosis. on rybelsus 14mg daily. 5.6% A1c ADHD hx. sees specialist for management on adderall ER 10mg daily. pt takes myrbetriq for overactive bladder. Stable with improvement LDL cholesterol 119, HDL 65, triglycerides 52 and total cholesterol 194 on recent labs HUSSAIN Goss Attn: [address] [place], [address], [facility] 02/29/2024 00:13:51 OBGyn Episode No OBEpisode recorded.
--- OUTSIDE RECORDS SUMMARY | 2024-05-05 15:25 | XMS_ITS | Clinical Summary ---
Author Organization [facility] [address] Address [address] [place] [address] Care Team Providers Care Regional Transportation Manager Name Role Phone Celestino Bhargavi NIXON Primary Care Pr ovider Allergies No known active allergies Medications ALPRAZolam (XANAX) 0.5 mg tablet Oral 03/03/2017 Active cholecalciferol (VITAMIN D-3) 5,000 unit tablet Take by mouth Active cyanocobalamin (Vitamin B-12) 1,000 mcg tablet Take 1 tablet (1,000 mcg total) by mouth daily Active dextroamphetami ne-amphetamine XR (ADDERALL XR) 10 mg 24 hr capsule daily 09/04/2023 Active mirabegron ER (Myrbetriq) 50 mg tablet extended release 24 hr Oral 08/06/2023 Activ e PARoxetine (PAXIL) 10 mg tablet Oral 08/06/2023 Active Rybelsus 14 mg tablet Take 1 tablet (14 mg total) by mouth daily 07/28/2023 Active methocarbamoL (ROBAXIN) 500 mg tabletIndicatio ns:Chronic bilateral low back pain with bilateral sciatica Take 1 tablet (500 mg total) by mouth nightly as needed for muscle spasms 30 tablet 11/19/2023 Active meloxicam (MOBIC) 7.5 mg tabletIndicatio ns:Chronic bilateral low back pain with bilateral sciatica Take 1 tablet (7.5 mg total) by mouth 2 (two) times a day 60 tablet 11/19/2023 Active Active Problems Problem Noted Date Diagnosed Date Obesity 10/11/2014 Snoring 10/11/2014 Fatigue 08/16/2014 Ventricular premature beats 08/15/2014 Surgical History Surgery Date Site/Laterality Comments FOOT FRACTURE SURGERY Medical History Medical History Date Comments Lumbar facet arthropathy Osteophyte of spine ADHD (attention deficit hyperactivity disorder) Diabetes mellitus (HCC) Anterolisthesis of lumbar spine DDD (degenerative disc disease), lumbar Family History Medical History Relation Name Comments COPD Father Family history of chronic obstructive pulmonary disease - (Added by TW Conv) Cancer Father Arthritis Mother Hypertension Sister 1 Family history of hypertension - (Added by Conv) Sleep apnea Sister 2 ELLYN (obstructiv e sleep apnea) - (Added by Conv) Relation Name Status Comments Father Mother Sister 1 Sister 2 Social History Tobacco Use Types Packs/Day Years Used Date Smoking Tobacco: Never Smokeless Tobacco: Never AUDIT-C Answer Date Recorded Q1: How often do you have a drink containing alc ohol? Monthly or less 11/19/2023 Q2: How many drinks containi ng alcohol do you have on a typical day when you are drinking? 1 or 2 11/19/2023 Q3: How often do you have si x or more drinks on one occasion? 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 Not on file Not on file Obstetrics History Last Filed Vital Signs Vital Sign Reading Time Taken Comments Blood Pressure 106/73 10/11/2014 9:47 AM CDT Pulse 81 10/11/2014 9:47 AM CDT Temperature - - Respiratory Rate - - Oxygen Saturation 97% 10/11/2014 9:47 AM CDT Inhaled Oxygen Concentration - - Weight 68.5 kg (151 lb) 11/19/2023 10:11 AM CDT Height 157.5 cm (5' 2 ) 11/19/2023 10:11 AM CDT Body Mass Index 27.62 11/19/2023 10:11 AM CDT Plan of Treatment Health Maintenance Due Date Last Done Comments Cervical Cancer Screening 1968 Colon Cancer Screening-Colonoscopy 1968 Depression Screening 1968 Hepatitis C Screening 1968 DTaP/Tdap/Td Vaccine (1 - Tdap) 1979 Hepatitis B Screening 1986 Regular Well Visit/Exam 18-64 1986 Zoster Vaccine (1 of 2) 2018 Breast Cancer Screening-Mammogram 01/15/2023 01/15/2022, 01/14/2021 Influenza Vaccine (#1) 2023 Pneumococcal vaccine <65 Aged Out No longer eligible based on patient's age to complete this topic Insurance [facility] CHOICE PLUS [facility] Care Teams Regional Transportation Manager Relationship Specialty Start Date End Date Bhargavi Tirado PA [address] [place] [address] PCP - General Physician Command Post Craftsman 09/16/23
--- OUTSIDE RECORDS SUMMARY | 2024-05-05 15:25 | XMS_ITS | Referral Summary ---
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
--- OUTSIDE RECORDS SUMMARY | 2024-05-05 15:25 | XMS_ITS | Data Portability ---
Author Organization [facility] [employer], Main Office Address [address] [place] [address] Assessment No assessment recorded. Plan of Treatment Reminders Order Date Submit Date Provider Last Modified By Organization Details Last Modified Time Details Appointments None recorded. Lab HbA1c (hemoglobin A1c), blood 2022 023 [email or web address] Not available 4 09:27:07 BMP, serum or plasma 2022 023 [email or web address] Not available 4 09:27:07 Referral psychiatris t referral - Needs ADHD evaluation Please call patient to schedule appointment . [email or web address] [facility], [address], [place], [address], 4 13:52:37 Procedures None recorded. Surgeries None recorded. Imaging None recorded. Medication Orders triamcinolo ne acetonide 0.1 % topical cream 2022 023 VERNON [employer] #[id number], [address] [facility], [place], [place], [id number], 3 08:49:10 ketoconazol e 2 % topical cream 2022 023 [facility] [employer] [facility] #[id number], [address] [facility], [place], [place], [id number], 3 08:49:09 paroxetine 10 mg tablet 2022 023 [employer] #[id number], [address] [facility], [place], [place], [id number], 16:33:26 alprazolam 0.5 mg tablet 2023 024 SATYA [employer] [facility], [address] [place] [address], [address], 16:42:37 Patient TargetsNo targets recorded. Patient InstructionsNo instructions recorded. Reason for Referral Psychiatrist Referral for Po or concentration Needs ADHD evaluation Please call patient to schedule appointment. Referring Physician: Yeimy Nielsen, Family Medicine, Encounter Date: 04/08/2023 Results Created Date Observation Date Name Description Value Unit Range Abnormal Flag Note LastModifiedBy Organization Detail LastModifiedTime 05/31/1905/30/2022 rapid strep group A, throa t STREP A negati ve Not Available [facility] [address], [place], [address], 05/30/2022 16:38:02 08/30/19 23 08/29/2022 CBC/C OMPLE TE BLD COUNT W/DIF F white blood cells 5.0 x10'3 /uL 4.2-10 .8 Not Available [facility] (Lab) [address] [place], [address], 08/29/2022 19:54:23 08/30/19 23 08/29/2022 CBC/C OMPLE TE BLD COUNT W/DIF F red blood cells 4.21 x10'6 /uL 3.80-5 .20 Not Available [facility] (Lab) [address] [place], [address], 08/29/2022 19:54:23 08/30/19 23 08/29/2022 CBC/C OMPLE TE BLD COUNT W/DIF F hemoglobin 12.1 g/dL 12.0-1 5.6 Not Available [facility] (Lab) [address] [place], [address], 08/29/2022 19:54:23 08/30/1908/29/2022 CBC/C OMPLE TE BLD COUNT W/DIF F hematocrit 38.0 % 35.7-4 5.7 Not Available [facility] (Lab) [address] [place], [address], 08/29/2022 19:54:23 08/30/1908/29/2022 CBC/C OMPLE TE BLD COUNT W/DIF F mean red cell volume 90.3 fL 82.0-9 9.0 Not Available [facility] (Lab) [address] [place], [address], 08/29/2022 19:54:23 08/30/1908/29/2022 CBC/C OMPLE TE BLD COUNT W/DIF F mean red cell hemoglobin 28.7 pg 27.0-3 3.0 Not Available [facility] (Lab) [address] [place], [address], 08/29/2022 19:54:23 08/30/1908/29/2022 CBC/C OMPLE TE BLD COUNT W/DIF F mean RBC HGB concentratio n 31.8 g/dL 31.0-3 6.0 Not Available [facility] (Lab) [address] [place], [address], 08/29/2022 19:54:23 08/30/1908/29/2022 CBC/C OMPLE TE BLD COUNT W/DIF F red cell distribution width 13.0 % 11.8-1 5.5 Not Available [facility] (Lab) [address] [place], [address], 08/29/2022 19:54:23 08/30/1908/29/2022 CBC/C OMPLE TE BLD COUNT W/DIF F platelets 276 x10'3 /uL 150-40 0 Not Available [facility] (Lab) [address] [place], [address], 08/29/2022 19:54:23 08/30/1908/29/2022 CBC/C OMPLE TE BLD COUNT W/DIF F mean platelet volume 10.9 fL 9.0-12 .4 Not Available [facility] (Lab) [address] [place], [address], 08/29/2022 19:54:23 08/30/1908/29/2022 CBC/C OMPLE TE BLD COUNT W/DIF F neutrophils 58.5 % 39.0-7 2.0 Not Available [facility] (Lab) [address] [place], [address], 08/29/2022 19:54:23 08/30/1908/29/2022 CBC/C OMPLE TE BLD COUNT W/DIF F lymphocytes 30.6 % 16.0-4 7.0 Not Available [facility] (Lab) [address] [place], [address], 08/29/2022 19:54:23 08/30/1908/29/2022 CBC/C OMPLE TE BLD COUNT W/DIF F monocytes 7.5 % 5.0-12 .0 Not Available [facility] (Lab) [address] [place], [address], 08/29/2022 19:54:23 08/30/1908/29/2022 CBC/C OMPLE TE BLD COUNT W/DIF F eosinophils 1.8 % 1.0-7. 0 Not Available [facility] (Lab) [address] [place], [address], 08/29/2022 19:54:23 08/30/1908/29/2022 CBC/C OMPLE TE BLD COUNT W/DIF F basophils 0.8 % 0.0-2. 0 Not Available [facility] (Lab) [address] [place], [address], 08/29/2022 19:54:23 08/30/1908/29/2022 CBC/C OMPLE TE BLD COUNT W/DIF F immature granulocytes 0.8 % 0.00-0 .50 high Not Available [facility] (Lab) [address] [place], [address], 08/29/2022 19:54:23 08/30/1908/29/2022 CBC/C OMPLE TE BLD COUNT W/DIF F neutrophils, absolute count 2.90 x10'3 /uL 1.5-8. 0 Not Available [facility] (Lab) [address] [place], [address], 08/29/2022 19:54:23 08/30/1908/29/2022 CBC/C OMPLE TE BLD COUNT W/DIF F lymphocytes, absolute count 1.52 x10'3 /uL 1.07-3 .43 Not Available [facility] (Lab) [address] [place], [address], 08/29/2022 19:54:23 08/30/1908/29/2022 CBC/C OMPLE TE BLD COUNT W/DIF F monocytes, absolute count 0.37 x10'3 /uL 0.29-0 .99 Not Available [facility] (Lab) [address] [place], [address], 08/29/2022 19:54:23 08/30/1908/29/2022 CBC/C OMPLE TE BLD COUNT W/DIF F eosinophils, absolute count 0.09 x10'3 /uL 0.02-0 .53 Not Available [facility] (Lab) [address] [place], [address], 08/29/2022 19:54:23 08/30/1908/29/2022 CBC/C OMPLE TE BLD COUNT W/DIF F basophils, absolute count 0.04 x10'3 /uL 0.01-0 .08 Not Available [facility] (Lab) [address] [place], [address], 08/29/2022 19:54:23 08/30/19 23 08/29/2022 CBC/C OMPLE TE BLD COUNT W/DIF F immature granulocytes ,absolute 0.04 x10'3 /uL 0.00-0 .05 Not Available [facility] (Lab) [address] [place], [address], 08/29/2022 19:54:23 08/30/19 23 08/29/2022 CBC/C OMPLE TE BLD COUNT W/DIF F nucleated red blood cells 0.0 % -0 Not Available [facility] (Lab) [address] [place], [address], 08/29/2022 19:54:23 08/30/19 23 08/29/2022 CBC/C OMPLE TE BLD COUNT W/DIF F NRBC# 0.00 x10'3 /uL Not Available [facility] (Lab) [address] [place], [address], 08/29/2022 19:54:23 08/30/19 23 08/29/2022 PROTI ME W/INR protime 10.4 secon ds 9.5-11 .5 Not Available Not Available 08/29/2022 20:02:11 08/30/1908/29/2022 PROTI ME W/INR INR 1.0 INR INDIC ATION S 2.0 - 3.0 PROPH YLAXI S: VENOU S THROM BOSIS (HIGH RISK SURGE RY) AND SYSTE RONALD EMBOL ISM (TISS UE HEART VALVE S, AMI VALVU LAR HEART DISEA SE AND ATRIA L FIBRI LLATI ON). TREAT MENT: VENOU S THROM BOSIS AND PULMO NARY EMBOL ISM BILEA FLET MECHA NICAL VALVE S IN AORTI C POSIT ION. 2.5 - 3.5 MECHA NICAL PROST HETIC HEART VALVE S (TILT ING DISK VALVE S AND BILEA FLET MECHA NICAL VALVE S IN OANH L POSIT ION). PREVE NTION OF RECUR RENT MYOCA RDIAL INFAR CTION . ANTIP HOSPH OLIPI D SYNDR OME. Not Available Not Available 08/29/2022 20:02:11 08/30/19 23 08/29/2022 APTT APTT 28.6 secon ds 23.4-3 1.4 PLEAS E NOTE NEW APTT REFER ENCE RANGE EFFEC TIVE 03/17 . Not Available Not Available 08/29/2022 20:02:13 08/30/19 23 08/29/2022 IRON/ TIBC PANEL total iron binding capacity 364 mcg/d L 265-47 5 Not Available [facility] (Lab) [address] [place], [address], 08/29/2022 20:24:46 08/30/19 23 08/29/2022 IRON/ TIBC PANEL % transferrin saturation 25 % 20-55 Not Available [facility] (Lab) [address] [place], [address], 08/29/2022 20:24:46 08/30/19 23 08/29/2022 IRON/ TIBC PANEL unsaturated iron bind capacity 274 mcg/d L 126-38 2 Not Available [facility] (Lab) [address] [place], [address], 08/29/2022 20:24:46 08/30/19 23 08/29/2022 IRON/ TIBC PANEL iron 90 mcg/d L 42-175 Not Available [facility] (Lab) [address] [place], [address], 08/29/2022 20:24:46 08/30/19 23 08/29/2022 BASIC METAB OLIC PANEL sodium 137 mmol/ L 137-14 5 Not Available [facility] (Lab) [address] [place], [address], 08/29/2022 20:15:37 08/30/19 23 08/29/2022 BASIC METAB OLIC PANEL potassium 4.4 mmol/ L 3.5-5. 1 Not Available [facility] (Lab) [address] [place], [address], 08/29/2022 20:15:37 08/30/19 23 08/29/2022 BASIC METAB OLIC PANEL chloride 101 mmol/ L 98-107 Not Available [facility] (Lab) [address] [place], [address], 08/29/2022 20:15:37 08/30/19 23 08/29/2022 BASIC METAB OLIC PANEL carbon dioxide 27 mmol/ L 22-30 Not Available [facility] (Lab) [address] [place], [address], 08/29/2022 20:15:37 08/30/19 23 08/29/2022 BASIC METAB OLIC PANEL anion gap 13.4 mmol/ L 14-22 low Not Available [facility] (Lab) [address] [place], [address], 08/29/2022 20:15:37 08/30/19 23 08/29/2022 BASIC METAB OLIC PANEL glucose 84 mg/dL 70-99 Not Available [facility] (Lab) [address] [place], [address], 08/29/2022 20:15:37 08/30/19 23 08/29/2022 BASIC METAB OLIC PANEL BUN 15 mg/dL 8-19 Not Available [facility] (Lab) [address] [place], [address], 08/29/2022 20:15:37 08/30/19 23 08/29/2022 BASIC METAB OLIC PANEL creatinine 0.76 mg/dL 0.66-1 .25 Not Available [facility] (Lab) [address] [place], [address], 08/29/2022 20:15:37 08/30/19 23 08/29/2022 BASIC METAB OLIC PANEL GFR >60 Refer ence Range : [place] ge GFR Healt hy Adult : >60 mL/mi n/1.7 3 m2 Chron ic Kidne y Disea se: 15-60 mL/mi n/1.7 3 m2 Kidne y Failu re: <15/m L/min /1.73 m2 www.n iddk. nih.g ov The MDRD study equat ion has not been valid ated in child kajal <18 years of age; pregn ant women ; the elder ly >85 years of age; or in some racia l or ethni c subgr oups, such as Hispa nics. Outsi de the valid ated ivory eters , estim ated GFR is less accur ate, requi ring clini satya judgm ent on a case- by-ca se basis . Clini satya inter preta tion for other races and ages must be made by the clini carlene. The MDRD study equat ion has not been valid ated for the evalu ation of serum creat inine relat ed to nutri sharon l statu s or medic ation usage . For perso ns <18 years of age, a pedia tric GFR calcu lator is avail able on the [facility] websi te: https ://raf mary.ralph gong.o rg/pr frankess newtonal s/kdo qi/gf r_cal culat or Not Available [facility] (Lab) [address] [place], [address], 08/29/2022 20:15:37 08/30/19 23 08/29/2022 BASIC METAB OLIC PANEL calcium 9.3 mg/dL 8.4-10 .2 Not Available [facility] (Lab) [address] [place], [address], 08/29/2022 20:15:37 08/30/19 23 08/29/2022 LIPID PANEL cholesterol 186 mg/dL 140-19 9 NIH FARZANA NSUS RECOM MENDA TION FOR ROGE STERO L: ADULT CHILD LOW RISK: <200 <170 BORDE RLINE : <200- 239 ----- HIGH RISK: >240 >200 Not Available [facility] (Lab) [address] [place], [address], 08/29/2022 20:15:40 08/30/19 23 08/29/2022 LIPID PANEL triglyceride s 82 mg/dL 0-150 NIH FARZANA NSUS REPOR T RECOM MENDA TION FOR TRIGL YCERI STACIA: ADULT CHILD LOW RISK: <150 ----- BODER LINE: 150-1 99 ----- HIGH RISK: >200 ----- Not Available [facility] (Lab) [address] [place], [address], 08/29/2022 20:15:40 08/30/19 23 08/29/2022 LIPID PANEL HDL cholesterol 53 mg/dL 40- Not Available [facility] (Lab) [address] [place], [address], 08/29/2022 20:15:40 08/30/19 23 08/29/2022 LIPID PANEL LDL cholesterol, calculated 117 mg/dL 0-130 NIH FARZANA NSUS REPOR T RECOM MENDA TIONS FOR LDL: ADULT CHILD LOW RISK <130 <110 (OPTI MAL LDL) <100 ----- BORDE RLINE : 130-1 59 ----- HIGH RISK: >160 >130 A TRIGL YCERI DE RESUL T >400 INVAL IDATE S THE CALCU LATIO N FOR LDL FRACT IONAT ION - THE LDL RESUL T WILL NOT BE REPOR POOJA. Not Available [facility] (Lab) [address] [place], [address], 08/29/2022 20:15:40 08/30/19 23 08/29/2022 HEPAT IC/LI JOANN PANEL alkaline phosphatase 61 U/L 38-126 Not Available [facility] (Lab) [address] [place], [address], 08/29/2022 20:15:42 08/30/19 23 08/29/2022 HEPAT IC/LI JOANN PANEL alanine aminotransfe rase 16 U/L 0-35 Not Available [facility] (Lab) [address] [place], [address], 08/29/2022 20:15:42 08/30/19 23 08/29/2022 HEPAT IC/LI JOANN PANEL aspartate aminotransfe rase 23 U/L 15-37 Not Available [facility] (Lab) [address] [place], [address], 08/29/2022 20:15:42 08/30/19 23 08/29/2022 HEPAT IC/LI JOANN PANEL bilirubin, total 0.30 mg/dL 0.20-1 .30 Not Available [facility] (Lab) [address] [place], [address], 08/29/2022 20:15:42 08/30/19 23 08/29/2022 HEPAT IC/LI JOANN PANEL bilirubin, conjugated (direct) 0.00 mg/dL 0.00-0 .30 Not Available [facility] (Lab) [address] [place], [address], 08/29/2022 20:15:42 08/30/19 23 08/29/2022 HEPAT IC/LI JOANN PANEL biliurubin,u ncong. (indirect) 0.20 mg/dL 0.00-1 .1 Not Available [facility] (Lab) [address] [place], [address], 08/29/2022 20:15:42 08/30/19 23 08/29/2022 HEPAT IC/LI JOANN PANEL total protein 6.9 g/dL 6.3-8. 2 Not Available [facility] (Lab) [address] [place], [address], 08/29/2022 20:15:42 08/30/19 23 08/29/2022 HEPAT IC/LI JOANN PANEL albumin 3.8 g/dL 3.4-5. 0 Not Available [facility] (Lab) [address] [place], [address], 08/29/2022 20:15:42 08/30/19 23 08/29/2022 HEPAT IC/LI JOANN PANEL globulin 3.1 g/dL 2.6-4. 2 Not Available [facility] (Lab) [address] [place], [address], 08/29/2022 20:15:42 08/30/19 23 08/29/2022 HEPAT IC/LI JOANN PANEL A/G ratio 1.2 ratio 1.0-2. 0 Not Available [facility] (Lab) [address] [place], [address], 08/29/2022 20:15:42 08/30/19 23 08/29/2022 CA TIN ferritin 61 NG/mL 11.1-2 64 Not Available [facility] (Lab) [address] [place], [address], 08/29/2022 20:46:24 08/30/19 23 08/29/2022 VITAM IN B12 (VASQUEZ ALEX ) vb12 506 pg/mL 239-93 1 Not Available Not Available 08/29/2022 22:08:46 08/30/19 23 08/29/2022 FOLAT E, SERUM /PLAS MA folate 8.93 NG/mL 2.76-2 0.0 Not Available [facility] (Lab) [address] [place], [address], 08/29/2022 22:08:50 08/30/19 23 08/29/2022 HEMOG LOBIN A1C HA1C 5.5 % 4.0-6. 0 Diabe deborah Scree lydia Crite giselle: <5.7% Consi stent with absen ce of diabe deborah 5.7-6 .4% Consi stent with incre ased risk for diabe deborah (pred iabet es) >OR=6 .5% Consi stent with diabe deborah REFER ENCE: Diabe deborah Care 2016, 39(Saenz ppl.1 ):s13 -s22 Not Available Not Available 08/29/2022 22:09:30 04/04/19 24 04/05/2023 BASIC METAB OLIC PANEL (8) glucose 92 mg/dL 70-99 Not Available [facility] ([facility]) [address] [facility], [place], [address], 04/05/2023 08:15:17 04/04/19 24 04/05/2023 BASIC METAB OLIC PANEL (8) BUN 16 mg/dL 6-24 Not Available [facility] ([facility]) [address] [place], [address], 04/05/2023 08:15:17 04/04/19 24 04/05/2023 BASIC METAB OLIC PANEL (8) creatinine 0.94 mg/dL 0.57-1 .00 Not Available [facility] ([facility]) [address] [place], [address], 04/05/2023 08:15:17 04/04/19 24 04/05/2023 BASIC METAB OLIC PANEL (8) eGFR 72 mL/mi n/1.7 3 >59 Not Available [facility] ([facility]) [address] [facility], [place], [address], 04/05/2023 08:15:17 04/04/19 24 04/05/2023 BASIC METAB OLIC PANEL (8) BUN/creatini ne ratio 17 9-23 Not Available [facility] ([facility]) [address] [place], [address], 04/05/2023 08:15:17 04/04/19 24 04/05/2023 BASIC METAB OLIC PANEL (8) sodium 141 mmol/ L 134-14 4 Not Available [facility] ([facility]) [address] [place], [address], 04/05/2023 08:15:17 04/04/19 24 04/05/2023 BASIC METAB OLIC PANEL (8) potassium 4.6 mmol/ L 3.5-5. 2 Not Available [facility] ([facility]) [address] [place], [address], 04/05/2023 08:15:17 04/04/19 24 04/05/2023 BASIC METAB OLIC PANEL (8) chloride 103 mmol/ L 96-106 Not Available [facility] ([facility]) [address] [facility], [place], [address], 04/05/2023 08:15:17 04/04/19 24 04/05/2023 BASIC METAB OLIC PANEL (8) carbon dioxide, total 25 mmol/ L 20-29 Not Available [facility] ([facility]) [address] [facility], [place], [address], 04/05/2023 08:15:17 04/04/19 24 04/05/2023 BASIC METAB OLIC PANEL (8) calcium 9.5 mg/dL 8.7-10 .2 Not Available [facility] ([facility]) [address] [facility], [place], [address], 04/05/2023 08:15:17 04/04/19 24 04/05/2023 HEMOG LOBIN A1C hemoglobin A1C 5.5 % 4.8-5. 6 Predi abete s: 5.7 - 6.4 Diabe deborah: >6.4 Glyce ronald contr ol for adult s with diabe deborah: <7.0 Not Available [facility] ([facility]) [address] [facility], [place], [address], 04/05/2023 08:15:18 12/04/1912/02/2022 XR, nasal bones No observ ation record ed. [email or web address] [facility] [address], [place], [address], 12/04/2022 11:12:46 04/20/1904/18/2023 MAMMO , scree lydia, digit al, bilat eral No observ ation record ed. [email or web address] [address], [place], [address], 08/09/2023 15:32:59 05/26/19 24 05/25/2023 kim tucker am No observ ation record ed. [email or web address] [facility] [address], [place], [address], 06/10/2023 07:58:03 Result Notes None recorded. Problems Name Problem SNOMED Code Status Onset Date Resolution Date Notes Provider Name and Address Organization Details Recorded Time Type 2 diabetes mellitus 68496246 Active 2020 Not Available [facility] 3 22:43:07 Pain in throat 829513696 Active 2022 JOANIE Coates, [place] [employer] [facility] [email or web address] 3 16:38:06 Ear problem 719945899 Active 2022 VICTORINO Mendoza [address], [place], [address] , [employer] [facility] [employer] 3 15:49:23 Easy bruising 527511274 Active 2022 Yeimy Nielsen MD [address], [place], [address] , [employer] [facility] [employer] [facility] 3 08:25:36 Eruption 360962090 Active 2022 Yeimy Nielsen MD [address], [place], [address] , [employer] [facility] [employer] [facility] 3 08:47:29 Injury of nose 76291121 Active 2022 Yeimy Nielsen MD [address], [place], [address] , [facility] [employer] [facility] [employer] [facility] 3 10:36:24 Poor concentration 01875095 Active 2022 Yeimy Nielsen MD [address], [place], [address] , [facility] 3 16:30:17 Mixed anxiety and depressive disorder 421038056 Active 2022 Yeimy Nielsen MD [address] [facility] [facility] [address], [place], [address] , [facility] 3 16:31:24 Problem Notes None recorded. Procedures Surgical History Date Name Laterality Status Provider Name and Address Organization Details Recorded Time 9 colonoscopy completed Not Available [facility] 05/29/19 22:42:33 Imaging Results Imaging Date Name Status LastModified by Organization Details LastModified Time 12/02/2022 XR, nasal bones completed [email or web address] [facility] [address] [facility] [address], [place], [address], 12/04/2022 11:12:46 04/18/2023 MAMMO, screening, digital, bilateral completed [address] [facility] [address], [place], [address], 08/09/2023 15:32:59 05/25/2023 electrocardiogram completed [address] [facility] [address] [facility] [address] [facility] [address], [place], [address], 06/10/2023 07:58:03 Procedure Notes None recorded. Medical Equipment None Reported. Allergies No known drug allergies Medications Name Sig Start Date Stop Date Status Note LastModified by Organization Details LastModified Time doxycycline hyclate 100 mg capsule TAKE ONE CAPSULE BY MOUTH EVERY 12 HOURS UNTIL ALL TAKEN 04/08 completed Not Available Not Available Not Available paroxetine 10 mg tablet 1 po qday active Not Available Not Available No t Available meloxicam 15 mg tablet TK 1 T PO QD WF 08/07 completed Not Available Not Available Not Available prednisone 20 mg tablet 2 po bid x 5 days with food in AM active Not Available Not Available No t Available sulfamethox azole 800 mg-trimetho prim 160 mg tablet TAKE 1 TABLET BY MOUTH EVERY 12 HOURS UNTIL ALL TAKEN 04/08 completed Not Available Not Available Not Available triamcinolo ne acetonide 0.1 % topical cream APPLY THIN LAYER TOPICALLY TO THE AFFECTED AREA TWICE DAILY FOR UP TO 4 WEEKS active Not Available Not Available No t Available Flarex 0.1 % eye drops,suspe nsion 08/07 completed Not Available Not Available Not Available oxycodone-a cetaminophe n 5 mg-325 mg tablet TAKE 1 TABLET BY MOUTH EVERY 4 TO 6 HOURS NEEDED FOR SEVERE PAIN 08/07 completed Not Available Not Available Not Available alprazolam 0.5 mg tablet TAKE 1 TABLET BY MOUTH TWICE DAILY NEEDED FOR STRESS active Not Available Not Available No t Available amoxicillin 875 mg tablet TAKE 1 TABLET BY MOUTH EVERY 12 HOURS FOR 10 DAYS 09/18 completed Not Available Not Available Not Available OneTouch Ultra Test strips active Not Available Not Available Not Available phenazopyri dine 100 mg tablet TAKE 1 TABLET BY MOUTH THREE TIMES DAILY FOR 7 DAYS NEEDED FOR BURNING WITH URINATION active Not Available Not Available No t Available oseltamivir 75 mg capsule TAKE 1 CAPSULE BY MOUTH TWICE DAILY FOR 5 DAYS 05/22 completed Not Available Not Available Not Available hydrocortis one 2.5 % topical ointment active Not Available Not Available Not Available ketoconazol e 2 % topical cream APPLY TOPICALLY TO THE AFFECTED AREA EVERY DAY FOR 4 WEEKS active Not Available Not Available No t Available fluticasone propionate 50 mcg/actuati on nasal spray,suspe nsion [place] 1 spray every day by intranasa l route. 2022 active Not Available Not Available Not Avai lable nitrofurant oin monohydrate /macrocryst als 100 mg capsule TAKE ONE CAPSULE BY MOUTH EVERY 12 HOURS WITH FOOD FOR 7 DAYS active Not Available Not Available No t Available alendronate 70 mg-cholecal ciferol (vitamin D3) 2,800 unit tablet Take 1 tablet every week by oral route. 2020 active Not Available Not Available Not Avai lable Xarelto 10 mg tablet TAKE 1 TABLET BY MOUTH EVERY DAY STARTING 24 HOURS AFTER SURGERY 08/07 completed Not Available Not Available Not Available Myrbetriq 50 mg tablet,exte nded release TAKE 1 TABLET BY MOUTH DAILY active Not Available Not Available No t Available Xiidra 5 % eye drops in a dropperette 08/07 completed Not Available Not Available Not Available OneTouch Ultra Blue Test Strip active Not Available Not Available N ot Available OneTouch Ultra2 Meter active Not Available Not Available Not Available OneTouch Delica Plus Lancet 33 gauge active Not Available Not Available Not Available Rybelsus 14 mg tablet TAKE 1 TABLET DAILY 2023 active Not Available Not Available Not Avai lable Rybelsus 7 mg tablet Take 1 tablet every day by oral route for 10 days. 09/18 completed Not Available Not Available Not Available Rybelsus 3 mg tablet TAKE 1 TABLET BY MOUTH EVERY DAY 07/15 completed Not Available Not Available Not Available Vitals Date Recorded Body height Provider Name an d Address Organization Details Last Updated DateTime 05/30/2022 157.48 cm Kenia Guerra [place] [employer] [facility] [employer] 05/30/2022 17:07:19 Date Recorded Body height Provider Name an d Address Organization Details Last Updated DateTime 08/29/2022 157.48 cm Arabella Lutz CMA [place] [employer] [facility] [employer] 08/29/2022 10:38:12 Date Recorded Body height Body mass index (BMI) Body weight Body temperature Heart rate Oxygen saturation Oxygen saturation in Arterial blood by Pulse oximetry Systolic blood pressure Diastolic blood pressure Provider Name and Address Organization Details Last Updated DateTime 3 157.48 cm 29.3 kg/m2 93676.7 8 g 97.1 [degF] 86 /min 96 % 96 % 122 mm[Hg] 78 mm[Hg] Fred Foster RN [facility] [employer] 3 08:30:18 Date Recorded Body height Body mass index (BMI) Body weight Body temperature Heart rate Oxygen saturation Oxygen saturation in Arterial blood by Pulse oximetry Systolic blood pressure Diastolic blood pressure Provider Name and Address Organization Details Last Updated DateTime 3 157.48 cm 29.6 kg/m2 92666.9 6 g 98.4 [degF] 83 /min 98 % 98 % 110 mm[Hg] 70 mm[Hg] Fred Foster RN [facility] [employer] [facility] 3 16:16:22 Date Recorded Body height Body mass index (BMI) Body weight Body temperature Heart rate Oxygen saturation Oxygen saturation in Arterial blood by Pulse oximetry Systolic blood pressure Diastolic blood pressure Provider Name and Address Organization Details Last Updated DateTime 4 157.48 cm 30 kg/m2 80418.1 5 g 98.1 [degF] 93 /min 98 % 98 % 112 mm[Hg] 74 mm[Hg] Fred Foster RN [facility] [employer] [facility] 16:28:13 Social History Question Answer Notes LastModified by [email or web address] Details LastModified Time Tobacco Smoking Status Never Smoker Cristo Jaime venegas [facility] [employer] [facility] 04/08/2023 16:25:28 What Is Your Level Of Alcohol Consumption? Occasional [id number] Information not available 05/28/2022 What Is Your Level Of Caffeine Consumption? Moderate [id number] Information not available 05/28/2022 How Much Tobacco Do You Chew? None [id number] Information not available 05/28/2022 What Type Of Diet Are You Following? REGULAR [id number] Information not available 05/28/2022 Which Illicit Or Recreational Drugs Have You Used? No Information not available 04/08/2023 Do You Or Have You Ever Used E-cigarettes Or Vape? 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 No Information not available 04/08/2023 What Was The Date Of Your Most Recent Tobacco Screening? 08/07/2020 Information not available 04/08/2023 Do You Or Have You Ever Used Smokeless Tobacco? Never Used Smokeless Tobacco [id number] Information not available 05/28/2022 Sex: Unknown Functional Status Question Answer Note LastModified by Organizat ion Details LastModified Time What is your exercise level? Moderate [id number] Information not available 05/28/2022 Mental Status None recorded. Family History Relationship Description Onset Age of this Age Resolved Age Notes LastModified by Organization Details LastModified Time Father Chronic obstructive pulmonary disease [id number] Not available 05/28/2022 22:42:35 Father Malignant tumor of lung [id number] [id number] Not available 05/28/2022 22:42:35 Sister Malignant tumor of cervix [id number] Not available 05/28/2022 22:42:35 Medical History Condition Response BLINDNESS N RHEUMATIC FEVER N KIDNEY STONES N BLADDER PROBLEMS N MRSA N OTHER # 1 N POLIO N LUNG DISEASE/DISORDER N RADIATION / CHEMOTHERAPY N COPD N Other # 2 N BLOOD DISEASES N SURGERY N EAR OR HEARING PROBLEMS N MUMPS N BOWEL PROBLEMS N FEMALE PROBLEMS / INFECTIONS N DEPRESSION (INCLUDING POST ) N STROKE/TIA N THYROID DISEASE N ULCERS N BENIGN PROSTATIC HYPERPLASIA N MEASLES N CERVICALGIA N TB SKIN TEST N MYOCARDIAL INFARCTION N PARAPELGIA N OBESITY N GERD/NAUSEA N ANEURYSM N URINARY/BLADDER/KIDNEY PROBLEMS N CORONARY ARTERY DISEASE (CAD) N MENIERE'S DISEASE N ADDICTION CONCERNS N ENDOMETRIOSIS N USE OF BLOOD THINNERS N SKIN PROBLEMS N EMPHYSEMA N GASTROINTESTINAL DISORDER N MUSCLE,JOINT OR BONE PROBLEMS N GASTROINTESTINAL BLEEDING N BLOOD CLOTS N ASTHMA N CATARACTS N ERECTILE DYSFUNCTION N GI PROBLEMS N CHF N Low Testosterone N NEUROPATHY N INFERTILITY N AIDS/HIV N FRACTURES N CHEMOTHERAPY / RADIATION N VISION/EYE PROBLEMS N LIVER DISEASE N MALE HYPOGONADISM N HYPERTENSION N TOURETTE'S N ANXIETY DISORDER N BLOOD TRANSFUSION N ANEMIA/BLOOD DISORDER N CHRONIC EAR INFECTIONS N BRONCHITIS N TUBERCULOSIS N GLAUCOMA N FOOT PROBLEM N DIVERTICULITIS N CHICKENPOX N SLEEP APNEA N ALLERGIES/HAYFEVER N INFECTIOUS DISEASE N HEART ARRHYTHMIA N PROSTATE N INSOMNIA N HIGH CHOLESTEROL / HYPERLIPIDEMIA N HYPERTHYROIDISM N EYE PROBLEMS N EATING DISORDER N EDEMA N CHRONIC PAIN SYNDROME N CAROTID BLOCKAGE N CONSTIPATION N BACK / NECK PROBLEMS N HAVE YOU BEEN HOSPITALIZED OR SEEN IN [facility] IN THE PAST YEAR ? N ATHEROSCLEROSIS N BREAST PROBLEMS N DIALYSIS N ECZEMA N FIBROMYALGIA N OSTEOPOROSIS N ARTHRITIS N NO SIGNIFICANT PAST MEDICAL HISTORY N APPENDICITIS N DIABETES, TYPE N BAD TEETH N HEARTBURN / REFLUX N ADD/ADHD N AUTISM SPECTRUM DISORDER (ASD) N HEPATITIS / LIVER DISEASE N PULMONARY DISEASE N GOUT N SLEEP DISORDER N ALZHEIMER'S DISEASE N PAIN N HERPES N DEMENTIA N HEADACHES/MIGRAINES N SEIZURES/EPILEPSY N VASCULAR DISEASE N PACEMAKER N DIZZINESS N HEART DISEASE/HEART PROBLEMS N KIDNEY DISEASE N DEVELOPMENTAL OR BEHAVIORAL DISORDERS N MULTIPLE SCLEROSIS N SCARLET FEVER N MENTAL DISORDER/ILLNESS N CARDIAC ARRHYTHMIA N CANCER: SPECIFY N PNEUMONIA N ATRIAL FIBRILLATION N Gall Stones N PULMONARY EMBOLISM N AUTOIMMUNE DISEASE N Gynecological History Statement/Question Response Date of Last Mammogram Current Control Method Menopause Breast Problems no Obstetrics History GPAL:G 2 P 1 0 0 1 Type Value Full Term 1 Living 1 Total 2 Past Encounters Encounter ID Performer Location Encounter Start Date Encounter Closed Date Diagnosis/Indication Diagnosis SNOMED-CT Code Diagnosis ICD10 Code Diagnosis Note [id number] [facility] [place] [address] [place] [address] 08/07/2020 00:00:00 08/07/2020 16:32:32 [id number] [facility] [place] [address] [place] [address] 10/15/2020 00:00:00 10/15/2020 14:27:35 [id number] [facility] [place] [address] [place] [address] 06/13/2021 00:00:00 06/18/2021 08:26:24 [id number] [facility] [place] [address] [place] [address] 07/15/2021 00:00:00 07/15/2021 16:48:17 [id number] [facility] [place] [address] [place] [address] 11/19/2021 00:00:00 11/26/2021 18:37:26 [id number] [facility] [place] [address] [place] [address] 05/22/2022 00:00:00 05/27/2022 12:59:48 [id number] VICTORINO Mendoza [facility] [place] [address] [place] [address] 05/30/2022 16:55:04 05/30/2022 17:07:40 [id number] VICTORINO Mendoza [facility] [place] [address] [place] [address] 08/29/2022 09:41:10 08/29/2022 10:42:40 [id number] Yeimy Nielsen MD [facility] [place] [address] [place] [address] 09/18/2022 08:25:21 09/18/2022 08:51:22 Type 2 diabetes mellitus 88640135 E11.9 [facility] [id number] [facility] [id number] Yeimy Nielsen MD [facility] Primary Care [facility] [address] [place] [address] 02/04/2023 16:11:24 02/04/2023 16:34:18 Poor concentration 63282210 R41.840 would like ADHD assessment Mixed anxi ety and depressive disorder 304532354 F41.8 she is actively seeking a therapistr estart paroxetine 10 mg daily with food in AM, did well on this in the pastf/u in 8 weeks or sooner if needed [id number] Yeimy Nielsen MD [facility] Primary Care [facility] [address] [facility] [place] [address] 04/08/2023 16:22:23 04/08/2023 16:49:12 Poor concentration 16070459 R41.840 would like ADHD assessment referral given Mixed anxi ety and depressive disorder 346960198 F41.8 she is actively seeking a therapistr estart paroxetine 10 mg daily with food in AM, did well on this in the pastf/u in 8 weeks or sooner if needed update 04/08/23: improved on paroxetine 10 mg dailyuses alprazolam sparingly, refill given Type 2 kenia betes mellitus 73724031 E11.9 in excellent control, a1c 5.5continu e rybelsus 14 mg daily Health Concerns Section Related Observation LastModified by Organization Detai ls LastModified Time None Recorded Concern Status LastModified by Organization Details LastModified Time None Recorded Advance Directives Directive None Recorded Payers Encounter Date Sequence Insurance Name Policy Number Policy Talbert Covered Member ID Talbert Member ID Guarantor Name 05/30/2022 1 [facility] [id number] Joselin Briceño [id number] Joselin Briceño 05/30/2022 2 [facility] [employer] [id number] Ivan Briceño [id number] Joselin Briceño 08/29/2022 1 [facility] [id number] Joselin Briceño [id number] Joselin Briceño 08/29/2022 2 [facility] [employer] [id number] Ivan Villalba Mihaitochivo [id number] Joselin A Kokotovich 09/18/2022 1 [facility] [id number] Joselin A Kokotovich [id number] Joselin A Kokotovich 09/18/2022 2 [facility] [employer] [id number] Ivan Villalba Grecia [id number] Joselin A Kokotovic 02/04/2023 1 [facility] [id number] Joselin A Kokotovic [id number] Joselin A Kokotovic 02/04/2023 2 [facility] [employer] [id number] Ivan Villalba Grecia [id number] Joselin A Kokotovich 04/08/2023 1 [facility] [id number] Joselin A Kokotovich [id number] Joselin A Kokotovich 04/08/2023 2 [facility] [employer] [id number] Ivan Villalba Grecia [id number] [facility] Notes Date Note Type Note Provider Name and Address Organization Details Recorded Time 09/18/2022 text/html rash on both palomo es of neck since end of July has used otc hydrocortisone cream but no improvement+itching at times Yeimy Nielsen MD [address] [place] [address], [phone], [facility] [employer] 09/26/2022 14:13:28 02/04/2023 text/html Here to discuss change in meds. She has been struggling this year, she typically takes alprazolam in AM but it makes her too sleepy so she is taking it at night She is irritable, mood swings, overwhelmed, sleep is ok (she takes otc sleep gummies or alprazolam), interests can be up and down, motivation is down-everyday tasks can take too much energy, no si/hi, can feel down/sad. She is trying to see a therapist. She believes she has ADHD, she is disorganized, poor spatial awareness, hyperfocus, has to read magazines/books from back to front. Her previous coping techniques are not as effective. She struggled in school, daydreamed frequently, very show as a child, now loud/boisterous as an adult. She had been on paroxetine in the past, was on 10 mg daily and did well on it in the past Yeimy Nielsen MD [address], [facility] [address], [place], [address], [facility] [employer] 02/04/2023 16:34:20 04/08/2023 text/html Here to discuss change in meds. She has been struggling this year, she typically takes alprazolam in AM but it makes her too sleepy so she is taking it at night She is irritable, mood swings, overwhelmed, sleep is ok (she takes otc sleep gummies or alprazolam), interests can be up and down, motivation is down-everyday tasks can take too much energy, no si/hi, can feel down/sad. She is trying to see a therapist. She believes she has ADHD, she is disorganized, poor spatial awareness, hyperfocus, has to read magazines/books from back to front. Her previous coping techniques are not as effective. She struggled in school, daydreamed frequently, very show as a child, now loud/boisterous as an adult. She had been on paroxetine in the past, was on 10 mg daily and did well on it in the past update 04/08/23: still struggling with focus/concentration even though mood is more level with paroxetine, wants ADHD evaluation. Still following good diet and staying active, taking rybelsus daily 14 mg daily. Yeimy Nielsen MD [address], [facility] [address], [place], [address], [facility] [employer] [facility] [employer] 04/08/2023 16:42:56 OBGyn Episode No OBEpisode recorded.
--- OUTSIDE RECORDS SUMMARY | 2024-05-05 15:26 | XMS_ITS | Encounter Summary ---
Author Organization [facility] Address 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
--- OUTSIDE RECORDS SUMMARY | 2024-05-05 15:26 | XMS_ITS | Clinical Summary ---
Author Organization [facility] [place] Address [address] [facility] [place] [address] Phone Care Team Providers Care Hop Worker Name Role Phone Fadi Posey MD Primary Care Provider [phone] Allergies No known active allergies Medications dicyclomine (BENTYL) 20 mg Oral tablet Take 1 Tab by mouth 4 times daily. 90 Tab 2 11/04/2011 Active phentermine (ADIPEX P) 37.5 mg Oral tablet Take 1 Tab by mouth daily before breakfast. 30 Tab 5 11/04/2011 Active Cholecalciferol, Vitamin D3, (VITAMIN D3) 5,000 unit Oral Tab Take by mouth. 1 po qd Active ergocalciferol (VITAMIN D2) 50,000 unit Oral capsule Take 1 Cap by mouth every 7 days. 12 Cap 0 11/07/2011 Active RANITIDINE HCL (ZANTAC ORAL) Take by mouth. Once daily Active penicillin V potassium (VEETID) 500 mg tablet Take 500 mg by mouth 4 times daily. Active diazepam (VALIUM) 5 mg tablet Take 0.5 Tabs by mouth every 8 hours as needed for Other (See Comment) (vertigo). 10 Tab None 03/07/2014 Active Active Problems Problem Noted Date Diagnosed Date GERD (gastroesophageal reflux disease) IBS (irritable bowel syndrome) Vitamin D deficiency Family History Medical History Relation Name Comments Lung Cancer Father Respiratory Disease Father copd Healthy Maternal Grandfather Healthy Maternal Grandmother Healthy Mother Diabetes Paternal Grandfather Healthy Paternal Grandmother Diabetes Sister 1 Healthy Sister 2 Healthy Sister 3 Relation Name Status Comments Father Maternal Grandfather Maternal Grandmother Mother Alive Paternal Grandfather Paternal Grandmother Sister 1 Alive Sister 2 Alive Sister 3 Alive Social History Tobacco Use Types Packs/Day Years Used Date Smoking Tobacco: Never Smokeless Tobacco: Never Alcohol Use Standard Drinks/Week Comments No 0 (1 standard drink = 0.6 oz pur e alcohol) Comments No Sex and Gender Information Value Date Recorded Sex Assigned at Not on file Legal 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 Gender Identity Not on file Sexual Orientation Not on file Last Filed Vital Signs Vital Sign Reading Time Taken Comments Blood Pressure 103/60 03/07/2014 3:01 PM DOOR CLAMP OPERATOR Pulse 78 03/07/2014 3:01 PM DOOR CLAMP OPERATOR Temperature 37 C (98.6 F) 03/07/2014 11:40 AM DOOR CLAMP OPERATOR Respiratory Rate 16 03/07/2014 3:01 PM DOOR CLAMP OPERATOR Oxygen Saturation 100% 03/07/2014 3:01 PM DOOR CLAMP OPERATOR Inhaled Oxygen Concentration - - Weight 81.6 kg (180 lb) 03/07/2014 11:40 AM DOOR CLAMP OPERATOR Height 157.5 cm (5' 2 ) 03/07/2014 11:40 AM DOOR CLAMP OPERATOR Body Mass Index 32.92 03/07/2014 11:40 AM DOOR CLAMP OPERATOR Plan of Treatment Health Maintenance Due Date Last Done Comments DTAP/TDAP/TD VACCINES (1 - Tdap) 1987 HEPATITIS B VACCINES (1 of 3 - 19+ 3-dose series) 1987 BREAST CANCER SCREENING 11/28/2011 11/27/2010 COLORECTAL SCREENING 2013 Colorectal Cancer Screening 2013 FIT-DNA Q 3 years 2013 FIT/FOBT Q 1 year 2013 Flex Sig/CT Colonography Q 5 years 2013 CERVICAL CANCER SCREENING 03/29/20172013, 02/07/2014, 11/27/2010 ZOSTER VACCINE (1 of 2) 2018 INFLUENZA VACCINE (#1) 2023 PNEUMOCOCCAL VACCINE 0-64 YEARS Aged Out No longer eligible b ased on patient's age to complete this topic Procedures Procedure Name Priority Date/Time Associated Diagnosis Comments CERV/VAG CYTO SCREEN PAP RLFX HPV Routine 03/29/2014 6:40 PM DOOR CLAMP OPERATOR Unsatisfactory cervical cytology smear from Last 3 Months or Most Recently Relevant to Health Maintenance Results * CERV/VAG CYTOPATH, THIN PREP IMAGR RFLX HPV (CP) (03/29/2014 6:40 PM DOOR CLAMP OPERATOR) LAST MENSTRUAL PERIOD [id number] [facility] [employer] [facility] PAP INTERP Negative for intraepithelial lesion or malignancy. [facility] [employer] [facility] Comment: Performed by [facility], [facility] [place] [address] Papier Mache Molder Pap Comment This Pap test has been evaluated with computer assisted technology. [facility] [employer] [facility] ADEQUACY: Satisfactory for evaluation. Endocervical/trans formation zone component present. [facility] LABORATORY [facility] CLINICAL INFORMATION Information not provided [facility] [employer] [facility] SOURCE [employer]ix [facility] LABORATORY [facility] PREV PAP: Information not provided [facility]ORAT[facility] CYTOTECHNOLOGI ST: MLO, CT(ASCP) [facility] [employer] [facility] PREV BX: Information not provided [facility] [employer] [facility] Endocervical 03/29/2014 6:40 PM DOOR CLAMP OPERATOR 03/29/2014 6:56 PM DOOR CLAMP OPERATOR Comment:ENDOCERVICAL Narrative [facility] [employer] [facility] - 04/04/2014 11:59 AM DOOR CLAMP OPERATOR ecc Carlos Rivera MD PATHOLOGY/CYTOLOGY ORDERABLES F inal Result [facility] [employer] [facility] CLIA# [id number] [address] [facility] [place] [address] from Last 3 Months or Most Recently Relevant to Health Maintenance Insurance [facility] [id number] Care Teams Hop Worker Relationship Specialty Start Date End Date Fadi Posey MD [address] [place] [address] PCP - General Family Practice 03/07/14
--- OUTSIDE RECORDS SUMMARY | 2024-05-05 15:26 | XMS_ITS | Data Portability ---
Author Organization [facility] [place] Address [address] [place] [address] [place] [address] Assessment Encounter Date Assessment Date Assessment LastModified by Organization Details LastModified Time 10/29/2022 10/29/2022 Annual gynecological exam performed. Patient will come back in a year unless there are new symptoms. Not available 10/29/2022 09:12:09 Plan of Treatment Reminders Order Date Submit Date Provider Last Modified By Organization Details Last Modified Time Details Appointments None recorded. Lab urinalysis , dipstick 2023 024 [place], [address], [address], [place], [address], 4 17:31:02 Referral None recorded. Procedures None recorded. Surgeries None recorded. Imaging MAMMO, screening, bilateral [address] [facility], [address], [place], [address], 3 15:18:27 Medication Orders Macrobid 100 mg capsule 2023 024 [employer] [facility] #[id number], [address] [facility], [place], [place], [id number], 4 17:53:17 Pyridium 100 mg tablet 2023 024 [employer] [employer] #[id number], [address] [facility], [place], [place], [id number], 4 17:53:17 Patient TargetsNo targets recorded. Patient InstructionsNo instructions recorded. Reason for Referral None Reported. 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 Elect priya bennett joel d by Leighann Lutz, CT on 023 at 1:55 PM ----- ----- ----- ----- ----- ----- ----- ----- ----- ----- ----- ----- ----- ----- ----- ----- ----- ---- HPV RESUL TS: HPV mRNA E6/E7 : No HPV mRNA Detec william NOTE: This high risk HPV mRNA assay detec ts fourt een high- risk HPV types (16, 18, 31, 33, 35, 39, 45, 51, 52, 56, 58, 59, 66, 68) witho ut diffe renti ation . COMME NT: This speci men was revie wed by a Cytot echno logis t and/o r Patho logis t (as indic ated in this repor t) after evalu ation using the Thinp rep Imagi ng Syste m. CLINI SATYA INFOR MATIO N: Menst rual Statu s: LMP (if appli cable ): Clini satya Histo ry/Pr eviou s Pap: Type of Neopl mitchell (if appli cable ): Signi fican t Clini satya Findi ngs: Other Histo ry: Hormo moses (if appli cable ): PAP EDUCA HANK L NOTE: The Pap Test is a scree lydia test with an inher ent false negat aaron rate. Liqui d-bas ed sampl ing may decre ase, but will not elimi mindy, false negat aaron resul ts. A negat aaron resul t does not precl ude the prese nce and/o r devel opmen t of disea se, since the prese nce of abnor mal cells in the sampl e depen ds on the locat ion of the lesio n and sampl ing techn ique. Garo nued regul ar scree lydia is the best metho d of cance r preve ntion . If repor william cytol ogic findi ng do not corre late with physi satya and/o r histo rical findi ngs, furth er inves tigat ion is recom [place], as clini shelby james nted. Not Available [facility] (Lab) [address], [place], [address], 10/30/2022 14:58:30 04/15/19 24 04/15/2023 URINA LYSIS , WITH MICRO SCOPI C color, urine LIGHT YELLOW Not Available [facility] (Lab) [address] [place], [address], 04/16/2023 20:53:58 04/15/19 24 04/15/2023 URINA LYSIS , WITH MICRO SCOPI C clarity, urine CLEAR Not Available [facility] (Lab) [address] [place], [address], 04/16/2023 20:53:58 04/15/19 24 04/15/2023 URINA LYSIS , WITH MICRO SCOPI C specific gravity, urine 1.022 . 1.005- 1.035 Not Available [facility] (Lab) [address] [facility], [place], [address], 04/16/2023 20:53:58 04/15/19 24 04/15/2023 URINA LYSIS , WITH MICRO SCOPI C pH, urine 5.5 . 5.0-7. 0 Not Available [facility] (Lab) [address] [facility], [place], [address], 04/16/2023 20:53:58 04/15/19 24 04/15/2023 URINA LYSIS , WITH MICRO SCOPI C protein, UA NEGATI VE mg/dL negati ve, 10-20 Not Available [facility] (Lab) [address] [facility], [place], [address], 04/16/2023 20:53:58 04/15/19 24 04/15/2023 URINA LYSIS , WITH MICRO SCOPI C glucose, urine NORMAL mg/dL normal , negati ve Not Available [facility] (Lab) [address] [facility], [place], [address], 04/16/2023 20:53:58 04/15/19 24 04/15/2023 URINA LYSIS , WITH MICRO SCOPI C ketones, urine NEGATI VE mg/dL negati ve Not Available [facility] (Lab) [address] [facility], [place], [address], 04/16/2023 20:53:58 04/15/19 24 04/15/2023 URINA LYSIS , WITH MICRO SCOPI C bilirubin, urine NEGATI VE negati ve Not Available [facility] (Lab) [address] [facility], [place], [address], 04/16/2023 20:53:58 04/15/19 24 04/15/2023 URINA LYSIS , WITH MICRO SCOPI C blood, urine NEGATI VE negati ve Not Available [facility] (Lab) [address] [facility], [place], [address], 04/16/2023 20:53:58 04/15/19 24 04/15/2023 URINA LYSIS , WITH MICRO SCOPI C nitrite, urine NEGATI VE negati ve Not Available [facility] (Lab) [address] [facility], [place], [address], 04/16/2023 20:53:58 04/15/19 24 04/15/2023 URINA LYSIS , WITH MICRO SCOPI C leukocyte esterase, urine NEGATI VE tianna/u L negati ve Not Available [facility] (Lab) [address] [facility], [place], [address], 04/16/2023 20:53:58 04/15/19 24 04/15/2023 URINA LYSIS , WITH MICRO SCOPI C urobilinogen , urine NORMAL mg/dL normal , <2.0 Not Available [facility] (Lab) [address] [facility], [place], [address], 04/16/2023 20:53:58 04/15/19 24 04/15/2023 URINA LYSIS , WITH MICRO SCOPI C RBC, urine 0-2 /hpf none, 0-2 Not Available [facility] (Lab) [address] [facility], [place], [address], 04/16/2023 20:53:58 04/15/19 24 04/15/2023 URINA LYSIS , WITH MICRO SCOPI C WBC, urine 0-5 /hpf none, 0-5 Not Available [facility] (Lab) [address] [facility], [place], [address], 04/16/2023 20:53:58 04/15/19 24 04/15/2023 URINA LYSIS , WITH MICRO SCOPI C squamous epithelial cells, urine NONE /hpf none Not Available [facility] (Lab) [address] [facility], [place], [address], 04/16/2023 20:53:58 04/15/19 24 04/15/2023 URINA LYSIS , WITH MICRO SCOPI C bacteria, urine NONE /hpf none Not Available [facility] (Lab) [address] [facility], [place], [address], 04/16/2023 20:53:58 04/15/19 24 04/15/2023 URINA LYSIS , WITH MICRO SCOPI C hyaline cast, urine NONE /lpf none, 0-2 Not Available [facility] (Lab) [address] [facility], [place], [address], 04/16/2023 20:53:58 04/15/19 24 04/15/2023 URINA LYSIS , WITH MICRO SCOPI C mucus, urine MODERA TE /hpf none, trace, few abnormal Not Available [facility] (Lab) [address] [facility], [place], [address], 04/16/2023 20:53:58 04/15/19 24 04/15/2023 CULTU RE: URINE result report SEE RESULT S BELOW Test: Cultu re: Urine Speci men Sourc e: Urine Voide d Speci men Type: Urine Speci men Date: 2023 4:57 PM Resul t Date: 2023 7:51 PM Resul t Statu s: Final resul t Abnor mal: No Resul ting Lab: [facility] [address] [facility] [address] Tel: CULTU RE ----- ----- ----- --- No growt h in 1 day (dete ction level of 10,00 0 colon ies / ml.) Not Available [facility] (Lab) [address] [facility], [place], [address], 04/16/2023 20:53:59 04/15/19 24 04/15/2023 urina lysis , dipst ick Leukocytes trace Not Available [facility] [address], [place], [address], 04/15/2023 17:30:22 04/15/19 24 04/15/2023 urina lysis , dipst ick pH 5 Not Available [address], [place], [address], 04/15/2023 17:30:22 04/15/19 24 04/15/2023 urina lysis , dipst ick Blood ++ Not Available [place] [address], [place], [address], 04/15/2023 17:30:22 04/15/19 24 04/15/2023 urina lysis , dipst ick Specific [place] 1.020 Not Available [facility] [address], [place], [address], 04/15/2023 17:30:22 Result Notes None recorded. Procedures Surgical History Date Name Laterality Status Provider Name and Address Organization Details Recorded Time 10/30/19 23 Date of Last Pap Smear completed [facility] 04/15/2023 17:26:08 10/29/19 22 Date of Last Mammogram completed [facility] 10/29/2022 09:21:46 12/27/19 19 completed [facility] 10/29/2022 09:21:46 12/27/19 19 Date of Last Colonoscopy completed [facility] 10/29/2022 09:21:46 Laparoscopy completed [facility] 10/29/2022 09:22:01 Colonoscopy completed Sayra Soriano [facility] [address], [place], [address], [facility] 10/29/2022 09:33:23 Imaging Results None recorded. Procedure Notes None recorded. Medical Equipment None Reported. Allergies No known drug allergies Medications Name Sig Start Date Stop Date Status Note LastModified by Organization Details LastModified Time doxycycline hyclate 100 mg capsule 04/15 completed Not Available Not Available Not Available paroxetine 10 mg tablet TAKE 1 TABLET BY MOUTH EVERY DAY active Not Available Not Available No t Available prednisone 20 mg tablet TAKE 2 TABLETS BY MOUTH TWICE DAILY IN THE MORNING WITH FOOD FOR 5 DAYS 10/29 completed Not Available Not Available Not Available sulfamethox azole 800 mg-trimetho prim 160 mg tablet TAKE 1 TABLET BY MOUTH EVERY 12 HOURS UNTIL ALL TAKEN 04/15 completed Not Available Not Available Not Available triamcinolo ne acetonide 0.1 % topical cream APPLY THIN LAYER TOPICALLY TO THE AFFECTED AREA TWICE DAILY FOR UP TO 4 WEEKS 10/29 completed Not Available Not Available Not Available alprazolam 0.5 mg tablet active Not Available Not Available Not Available amoxicillin 875 mg tablet TAKE 1 TABLET BY MOUTH EVERY 12 HOURS FOR 10 DAYS 10/29 completed Not Available Not Available Not Available phenazopyri dine 100 mg tablet TAKE 1 TABLET BY MOUTH THREE TIMES DAILY FOR 7 DAYS NEEDED FOR BURNING WITH URINATION active Not Available Not Available No t Available oseltamivir 75 mg capsule TAKE 1 CAPSULE BY MOUTH TWICE DAILY FOR 5 DAYS 10/29 completed Not Available Not Available Not Available hydrocortis one 2.5 % topical ointment APPLY TOPICALLY TO NOSE TWICE DAILY FOR 7 DAYS 10/29 completed Not Available Not Available Not Available ketoconazol e 2 % topical cream APPLY TOPICALLY TO THE AFFECTED AREA EVERY DAY FOR 4 WEEKS 10/29 completed Not Available Not Available Not Available nitrofurant oin monohydrate /macrocryst als 100 mg capsule TAKE ONE CAPSULE BY MOUTH EVERY 12 HOURS WITH FOOD FOR 7 DAYS active Not Available Not Available No t Available B Complex-Vit pastor B12 active Not Available Not Available Not Available alprazolam 04/15 completed Not Available Not Available Not Available Vitamin D 2,000 unit capsule active Not Available Not Available Not Available Myrbetriq 50 mg tablet,exte nded release TAKE 1 TABLET BY MOUTH DAILY active Not Available Not Available No t Available Rybelsus 14 mg tablet active Not Available Not Available No t Available Rybelsus 7 mg tablet TAKE 1 TABLET BY MOUTH EVERY DAY 10/29 completed Not Available Not Available Not Available Vitals Date Recorded Body height Body mass index (BMI) Body weight Systolic blood pressure Diastolic blood pressure Provider Name and Address Organization Details Last Updated DateTime 10/29/2022 157.48 cm 30 kg/m2 43351.15 g 109 mm[Hg] 69 mm[Hg] Maura Moreauer [facility] 3 09:21:17 Date Recorded Body height Body mass index (BMI) Body weight Systolic blood pressure Diastolic blood pressure Provider Name and Address Organization Details Last Updated DateTime 04/15/2023 157.48 cm 30.2 kg/m2 63780.74 g 110 mm[Hg] 71 mm[Hg] Maura Apolinar [facility] 4 17:21:01 Social History Question Answer Notes LastModified by Organizat ion Details LastModified Time Tobacco Smoking Status Never Smoker Emma Chacon rubi, [facility] 04/15/2023 17:02:39 What Is Your Level Of Alcohol Consumption? Occasional Information not available 10/29/2022 How Many Years Have You Consumed Alcohol? 34 Information not available 10/29/2022 Are You Blind Or Do You Have Difficulty Seeing? No Information n ot available 10/29/2022 What Is Your Level Of Caffeine Consumption? Moderate Information not available 10/29/2022 How Much Tobacco Do You Chew? None Information not available 10/29/2022 In The 14 Days Before Symptom Onset, Have You Had Close Contact With A Laboratory-confirm ed COVID-19 While That Case Was Ill? No Information n ot available 10/29/2022 In The 14 Days Before Symptom Onset, Have You Had Close Contact With A Person Who Is Under Investigation For COVID-19 While That Person Was Ill? No Information not available 10/29/2022 Have You Been To An Area Known To Be High Risk For COVID-19? No Information not available 10/29/2022 Are You Deaf Or Do You Have Serious Difficulty Hearing? No Information not available 10/29/2022 What Type Of Diet Are You Following? REGULAR Information n ot available 10/29/2022 What Is The Highest Grade Or Level Of School You Have Completed Or The Highest Degree You Have Received? 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 No Information not available 10/29/2022 Do You Use Protection During Sex? No Information not available 10/29/2022 Do You Use Your Seat Belt Or Car Seat Routinely? Yes Information not available 10/29/2022 Do You Have Smoke And Carbon Monoxide Detectors In Your Home? Yes Information not available 10/29/2022 How Much Tobacco Do You Smoke? No Information not available 10/29/2022 Do You Feel Stressed (tense, Restless, Nervous, Or Anxious, Or Unable To Sleep At Night)? [id number] Information not available 10/29/2022 Do You Use Any Illicit Or Recreational Drugs? No Information not available 10/29/2022 Do You Use Sunscreen Routinely? Yes Information not available 10/29/2022 Have You Used IV Drugs? No Information not available 10/29/2022 Sex: Unknown Functional Status Question Answer Note LastModified by Organization D etails LastModified Time What is your exercise level? Moderate Information not available 10/29/2022 Mental Status None recorded. Family History Relationship Description Onset Age of this Age Resolved Age Notes LastModified by Organization Details LastModified Time Sister Malignant tumor of cervix Not available 2022 09:21:22 Father Anxiety disorder Not available 2022 09:21:22 Father Disorder of lung Not available 2022 09:21:22 Father Depressive disorder Not available 2022 09:21:22 Father Malignant tumor of lung Not available 2022 09:21:22 Medical History Condition Response Allergies (Food, seasonal, environmental ) N Other N Breast Cancer N Drug/Latex Allergies/Reactions N Blood Transfusion N Dermatologic Disorders N Lung Disease N Defects or Inherited Disease N Breast Problem N Gestational Diabetes N Hematologic disorders N Anesthesia Complications N History of STI N Deep Vein Thrombosis N Polycystic ovary syndrome N Anxiety Disorder N Autoimmune disease N Arthritis N Infertility N Polyps N Acid Reflux (GERD) N History of abnormal pap N Cancer N Stroke N Varicosities N Neurologic/Epilepsy N Endometriosis N High Cholesterol N Headaches N Fibromyalgia N Kidney Disease N Heart Problems N Kidney or Bladder Problems N Thyroid Problems N GI Problems N Eating Disorder N Anemia N Art (IVF or FET) N Psychiatric Illness N Ovarian Cancer N Diabetes Y Pulmonary (TB, Asthma) N Hepatitis/Liver Disease N No Past Medical History N Eczema N Urinary Tract Infection N Abuse/Domestic Violence N Asthma N Trauma/Violence N Depression/ depression N Heart Disease N Pre-Eclampsia N Hypertension N Osteoporosis N Thrombophilias N Gynecological History Statement/Question Response Abnormal Pap N Date of Last Mammogram 10/28/2021 On BCP's at Conception? N N Was last menstrual period normal N STIs/STDs N HPV Vaccine N Duration of Flow (days) 5 Current Control Method Menopause Age at First Child 26 If Post Menopausal, Age at Menopause 50 Date of Last Colonoscopy 12/26/2018 Frequency of Cycle (Q days) 26 Sexually Active? Y Menses Monthly N Age of first menstrual cycle 10 Date of Last Pap Smear 10/29/2022 Sexual Problems? N LMP Unknown 12/26/2018 N Obstetrics History GPAL:G 2 P 2 0 0 1 Type Value Full Term 2 Living 1 Total 2 Past Encounters Encounter ID Performer Location Encounter Start Date Encounter Closed Date Diagnosis/Indication Diagnosis SNOMED-CT Code Diagnosis ICD10 Code Diagnosis Note [id number] Sayra Soriano , [facility] [address] [address] 10/29/2022 09:05:23 10/29/2022 15:18:27 Gynecologic examination 39497895 Z01.419 Take Calcium with Vitamin D 12-1500mg daily. Do monthly self breast exams. It is advised to get annual flu shot in the fall and she could obtain at [facility] or [facility] care clinic. If you haven't received the Tdap vaccine in the last 10 years you should obtain one as well. Have mammogram yearly, bone density every 2-3 years and colonoscop y every 5-10 years depending on findings and history. Engage in daily exercise of low impact aerobic exercise 45-60 minutes 4-5 times weekly. Avoid tobacco and illicit drugs as well as using moderation with alcohol intake less than 1-2 8 oz beverages daily. This lifestyle behavior pattern will lead to less health conditions and longer life span. If BMI greater than 25 weight watchers or dietary consult advised. Questions have been answered. Patient appears to understand instructio ns, but if you have any further questions call or respond to this email Pap/hpv sentIf pap wnl & no changes in Hx can consider q3yrs per asccpSTD Screen declinedGe netic Screen discussedC olon Screen PCPDexa Screen naRoutine Labs PCP Screening mammography 24 [id number] Z12.31 [id number] Sayra Soriano [facility] [address] [address] 04/15/2023 17:02:06 04/17/2023 10:01:47 Abnormal uterine bleeding [id number] 9100 N93.9 Exam wnl today Urinary symptoms [id number] 08 R39.9 Suspect UTIWill go ahead and treat.Rodarte roshni, if testing returns and it is neg; then I'd like to go ahead with a TVUS to ensure we are not missing anything.W ill contact with results Counseled on medication R/B's, Most common side effects, & use. All questions were answered to patient satisfacti on. Rx sent Time spent in visit is a total of 21 mins with at least 50% of visit consisting of counseling and review of plan of care. Health Concerns Section Related Observation LastModified by Organization Detai ls LastModified Time None Recorded Concern Status LastModified by Organization Details LastModified Time None Recorded Advance Directives Directive None Recorded Payers Encounter Date Sequence Insurance Name Policy Number Policy Talbert Covered Member ID Talbert Member ID Guarantor Name 10/29/2022 2 [employer] [id number] Ivan Paige [id number] Joselin Briceño 10/29/2022 1 [facility] [id number] [facility] [id number] Joselin Gopal Paige 04/15/2023 2 [employer] [id number] Ivan Paige [id number] Joselin Briceño 04/15/[address] [place] [address] [id number] Joselin Piage [id number] Joselin Briceño Notes Date Note Type Note Provider Name and Address Organization Details Recorded Time 10/29/2022 text/html Annual Shot Dropper Post-MenopausalRe ported bypatient.[place] leah Symptoms:no menopausal symptoms; normal vaginal lubrication Vaginal Bleeding:history of menopause having occurred; no history of post menopausal bleeding Urinary Symptoms:no hematuria; no incontinence; no nocturia; no urinary frequency Vulva:no genital lesion; no vulvar atrophy Vagina:normal vaginal discharge; no vaginal atrophy Breast:no breast lump; no nipple discharge; no breast pain Sexual Complaints:no sexual complaints Psychological Symptoms:no depression; no anxiety Preventive Measures:encourag e regular mammograms starting age 40; encourage self breast examination; encourage regular exercise; encourage no tobacco use; needs to schedule mammogram; history of recent colonoscopy [facility] [address], [place], [address], [facility] 10/29/2022 13:48:06 04/15/2023 text/html Jennifer is here toda y for random pink with wipe last week and dysuria. Neg pain of abd/pelvis/flank+ urinary sx's dysuria, urgency, nocturiaNeg GI sx'sNeg N/V/F/C/DNeg Vag d/c, odor, irritation, itching [facility] [address], [place], [address], [facility] 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 10/30/19 23 1 CLOSED Fetus Data First Name Last Name Admitted to NICU Weight (g) Sex Living Outcome Pediatric Complications Fetus ID Race Codes Race Delivery Type 2721.55 2 F Full Term Vaginal Delivery Mir Calculation Initial Mir Date Initial Exam Date Initial Exam Provider Initial Ultrasound Date Last Menstrual Period Date Ultra Sound Weeks Gestation 0 Eighteen To Twenty Week Mir Update Ultra Sound Date Fundal Height At Umbil Quickening Date Ultra Sound Latest Weeks Gestation Final Mir Confirmed By Final Mir Confirmed Date Final Mir Date Ultra Sound Latest Days Gestation 0 0 Menstrual History Last Menstrual Date Menses Monthly On Bcp Conception Prior Menses Frequency Hcg Plus Date Menarche Onset Age Delivery Information Delivery Date Delivery Type Labor Anesthesia Weeks Gestation Incision Type Labor Labor Length Hrs Delivered By Post Complications Tubal Sterilization Discharge Date Comments 0 40 passed after from holoprose ncephaly Discharge Information Feeding Method Contraceptive Method Maternal HG B and HCT Levels Ob Episode Information Episode Created Date Number of Fetuses Patient Bloodtype Patient rh Status Prepregnancy Weight lbs Domestic Partner Domestic Partner Phone Father Name 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 10/30/19 23 1 CLOSED Fetus Data First Name Last Name Admitted to NICU Weight (g) Sex Living Outcome Pediatric Complications Fetus ID Race Codes Race Delivery Type 3288.54 2 F Full Term [id number] Vaginal Delivery Mir Calculation Initial Mir Date Initial Exam Date Initial Exam Provider Initial Ultrasound Date Last Menstrual Period Date Ultra Sound Weeks Gestation 0 Eighteen To Twenty Week Mir Update Ultra Sound Date Fundal Height At Umbil Quickening Date Ultra Sound Latest Weeks Gestation Final Mir Confirmed By Final Mir Confirmed Date Final Mir Date Ultra Sound Latest Days Gestation 0 0 Menstrual History Last Menstrual Date Menses Monthly On Bcp Conception Prior Menses Frequency Hcg Plus Date Menarche Onset Age Delivery Information Delivery Date Delivery Type Labor Anesthesia Weeks Gestation Incision Type Labor Labor Length Hrs Delivered By Post Complications Tubal Sterilization Discharge Date Comments 7 40 Discharge Information Feeding Method Contraceptive Method Maternal HG B and HCT Levels
--- OUTSIDE RECORDS SUMMARY | 2024-05-05 15:26 | XMS_ITS | CONTINUITY OF CARE DOCUMENT ---
Author Name hansa santo Address Unknown Organization [facility] Address [address] [place] [address] Phone [phone] Care Team Providers Care Conventional Mortgage Underwriter Name Role Phone AZAEL JOE MD Unavailable [phone] INSURANCE PROVIDERS Payer name Policy type / Coverage type [place] red republican [employer] Other [id number]
--- OUTSIDE RECORDS SUMMARY | 2024-05-05 15:26 | XMS_ITS | Patient Health Summary ---
Author Organization [facility] Address [address] [place] [address] Care Team Providers Care Optical Glass Inspector Name Role Phone Yeimy Nielsen MD Primary Care Provider [phone] Note from [facility],non-owned Affiliates and Associated Physician Practices is amultiple site organization consisting of ambulatory clinics and hospital sitesin [place], [place], [place] and [place]. This disclosure is being madepursuant to the Care Everywhere program and may not contain all information available regarding this patient. Last updated 17.[facility] Allergies No known active allergies Medications * Be aware that medications may not be up to date on this document. Alwaysverify current medications with the patient. * ALPRAZolam (XANAX) 0.5 MG tablet(Started 03/03/2017) Take 1 (one) tablet by mouth 3 times daily as needed * mirabegron ER 24hr (MYRBETRIQ) 25 MG tablet(Started 01/09/2017) Take 2 (two) tablets by mouth once daily * vitamin D (CHOLECACIFEROL) 125 MCG (5000 UT) capsule Take 1 (one) capsule by mouth once daily * cyanocobalamin (VITAMIN B-12) 1000 MCG tablet Take 1 (one) tablet by mouth once daily * Rybelsus 7 MG tablet(Started 07/15/2021) Take 1 (one) tablet by mouth once daily * hydrocortisone (Hytone) 2.5 % ointment(Started 04/18/2022) Apply to nose twice daily for 7 days 30 days supply. * amphetamine-dextroamphetamine XR 24hr (Adderall XR) 10 MG capsule(Started 09/04/2023) TAKE 1 CAPSULE BY MOUTH DAILY IN THE MORNING * PARoxetine (Paxil) 10 MG tablet Take by mouth once daily Active Problems Problem Noted Date Diagnosed Date GERD (gastroesophageal reflux disease) IBS (irritable bowel syndrome) 04/21/2022 Vitamin D deficiency 04/21/2022 Obesity 10/11/2014 Snoring 10/11/2014 Fatigue 08/16/2014 Ventricular premature beats 08/15/2014 Other skin changes due to ch ronic exposure to nonionizing radiation 12/06/2010 Actinic keratosis 12/06/2010 Other benign neoplasm of skin, unspecified 12/06 Dermatofibroma 12/06/2010 Sun-damaged skin 12/06/2010 Social History Tobacco Use Types Packs/Day Years Used Date Smoking Tobacco: Never Smokeless Tobacco: Former Tobacco Cessation:Counseling Given: No Alcohol Use Standard Drinks/Week Comments Yes 0 (1 standard drink = 0.6 oz pur e alcohol) Sex and Gender Information Value Date Recorded Sex Assigned at Not on file Gender Identity Not on file Sexual Orientation Not on file Procedures * ND DESTROY PREMALIG LESION, 1ST LESION(Performed 11/05/2021) Performed for Actinic keratosis * DERMATOPATHOLOGY(Performed 04/20/2017) * DERMATOPATHOLOGY(Performed 01/27/2014) * DERMATOPATHOLOGY(Performed 10/21/2012) * DERMATOPATHOLOGY(Performed 11/19/2010) Results * ND DESTROY PREMALIG LESION, 1ST LESION (11/05/2021 8:32 AM CDT) Narrative Ronna Rojas PA - 11/05/2021 8:32 AM CDT Ronna Rojas PA 11/05/2021 8:37 AM Derm - Destruction Pre-malignant Date/Time: 11/05/2021 8:32 AM Performed by: Ronna Rojas PA Authorized by: Ronna Rojas PA Consent given by: patient Consent type: verbal Risks discussed with patient: scar formation, skin color change, need for further testing/treatment, pain, blistering and infection Consent type: verbal Procedure details: Anesthesia: none Body area 1: Body area: head/neck Head/neck location: L cheek Lesions in this body area: 1 Total number of lesions: 1 Destruction method: cryotherapy Cryotherapy cycles: 1 Cryotherapy time per cycle (seconds): 5-7 Complications: none Wound care discussed with patient? yes Ronna NIXON PROCEDURE/MINOR SURG ICAL ORDERABLES * PATHOLOGY TISSUE FOR DERMATOLOGY (04/20/2017 12:00 AM TREATMENT TECHNICIAN) Only the most recent of4 resultswithin the time period is included. 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 GROSS DESCRIPTION: Received is one formalin filled container labeled with the patients name and designated nose. The specimen consists of a shave biopsy measuring [id number]. Jar 0. MICROSCOPIC DESCRIPTION: Sections show non-specific changes, including solar elastosis and vascular ectasia. There is focal dermal fibrosis. Additional deeper sections were obtained and reviewed. COMMENT: These histologic findings may be secondary to prior trauma/proced ural or may represent the superficial portions of an angiofibroma. Clinical correlation is recommended. Electronicall y signed out by Latesha Villa M.D. 04/22/2017 2:54:28PM DERMATOPATHOLOGY LABORATORY Comment: Performed at: Dermatopathology Laboratory [facility] Department of Dermatology [address] [place] [address] Phone number: [phone] FAX: [phone] Skin (tissue) specimen (specimen) 04/20/2017 04/21/2017 Narrative DERMATOPATHOLOGY LABORATORY - 04/22/2017 2:54 PM TREATMENT TECHNICIAN HUSSAIN Traore Preferred Lab:->Derm-Path Specimen A: Type->Shave Site->nose History->pink papule x 4-6 weeks prior tx with LN2 Impression->AK vs nmsc Check Margins:->N/A Prior Biopsy->N/A Ronna NIXON LAB - PATHOLOGY/CYTO LOGY ORDERABLES DERMATOPATHOLOGY LABORATORY [facility] - Department of Dermatology [address] [place] [address] Care Teams Optical Glass Inspector Relationship Specialty Start Date End Date Yeimy Nielsen MD [address] [place] [address] PCP - General 10/21/20
--- OUTSIDE RECORDS SUMMARY | 2024-05-05 15:26 | XMS_ITS | Encounter Summary ---
Author Organization [facility] Address [address] [place] [address] Care Team Providers Care Maintenance Operator Name Role Phone Fadi Posey MD Primary Care Provider [phone] Encounter Details Date Type Department Care Team (Late st Contact Info) Description 12/27/1999 Inpatient Historical HIS PATIENT IN A BED Miguel, Carlos Houston MD [address] [place] [address] Second-degree perineal laceration, with delivery (Primary Dx) Social History Tobacco Use Types Packs/Day Years Used Date Smoking Tobacco: Never Assessed Comments Unknown Sex and Gender Information Value Date Recorded Sex Assigned at Not on file Legal Sex Female 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
--- OUTSIDE RECORDS SUMMARY | 2024-05-05 15:26 | XMS_ITS | Encounter Summary ---
Author Organization [facility] Address [address] [place] [address] Care Team Providers Care Microfabrication Engineer Manager Name Role Phone Fadi Posey MD Primary Care Provider [phone] Encounter Details Date Type Department Care Team (Latest Contact Info) Description 12/17/1999 Outpatient Historical HIS OBSERVATION BED Carlos Rivera MD [address] [place] [address] [place] [id number] Other threatened labor, antepartum (Primary Dx) Social History Tobacco Use Types Packs/Day Years Used Date Smoking Tobacco: Never Assessed Comments Unknown Sex and Gender Information Value Date Recorded Sex Assigned at Not on file Legal Sex Female 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
--- OUTSIDE RECORDS SUMMARY | 2024-05-05 15:26 | XMS_ITS | Clinical Summary ---
Author Organization [email or web address] Address [address] [place] [address] Care Team Providers Care Loss Prevention Specialist Name Role Phone Yeimy Nielsen MD Primary Care Provider [phone] Source Comments [facility],non-owned Affiliates and Associated Physician Practices is amultiple site organization consisting of ambulatory clinics and hospital sitesin [place], [place], [place] and [place]. This disclosure is being madepursuant to the Care Everywhere program and may not contain all information available regarding this patient. Last updated 17.[facility] Allergies No known active allergies Medications * Be aware that medications may not be up to date on this document. Alwaysverify current medications with the patient. Medication Sig Dispensed Refills Start Date End Date Status ALPRAZolam (XANAX) 0.5 MG tablet Take 1 (one) tablet by mouth 3 times daily as needed 03/03/2017 Active mirabegron ER 24hr (MYRBETRIQ) 25 MG tablet Take 2 (two) tablets by mouth once daily 01/09/2017 Active vitamin D (CHOLECACIFEROL) 125 MCG (5000 UT) capsule Take 1 (one) capsule by mouth once daily Active cyanocobalamin (VITAMIN B-12) 1000 MCG tablet Take 1 (one) tablet by mouth once daily Active Rybelsus 7 MG tablet Take 1 (one) tablet by mouth once daily 07/15/2021 Active hydrocortisone (Hytone) 2.5 % ointment Apply to nose twice daily for 7 days 30 days supply. 20 g 04/18/2022 Active amphetamine-dextroamph etamine XR 24hr (Adderall XR) 10 MG capsule TAKE 1 CAPSULE BY MOUTH DAILY IN THE MORNING 09/04/2023 Active PARoxetine (Paxil) 10 MG tablet Take by mouth once daily Active Active Problems Problem Noted Date Diagnosed Date GERD (gastroesophageal reflux disease) IBS (irritable bowel syndrome) 04/21/2022 Vitamin D deficiency 04/21/2022 Obesity 10/11/2014 Snoring 10/11/2014 Fatigue 08/16/2014 Ventricular premature beats 08/15/2014 Other skin changes due to ch ronic exposure to nonionizing radiation 12/06/2010 Actinic keratosis 12/06/2010 Other benign neoplasm of skin, unspecified 12/06 Dermatofibroma 12/06/2010 Sun-damaged skin 12/06/2010 Family History Medical History Relation Name Comments None Known Brother None Known Father None Known Maternal Aunt None Known Maternal Grandfather None Known Maternal Grandmother None Known Maternal Uncle None Known Mother None Known Other None Known Paternal Aunt None Known Paternal Grandfather None Known Paternal Grandmother None Known Paternal Uncle Cancer Sister cervical Allergy (Severe) Neg Hx Asthma Neg Hx CVA Neg Hx Cancer - Breast Neg Hx Cancer - Other Neg Hx Cancer - Skin, Melanoma Neg Hx Cancer - Skin, Non Melanoma Neg Hx Eczema Neg Hx Hemophilia Neg Hx Psoriasis Neg Hx Rashes/Skin Problems Neg Hx Relation Name Status Comments Brother Father Maternal Aunt Maternal Grandfather Maternal Grandmother Maternal Uncle Mother Other Paternal Aunt Paternal Grandfather Paternal Grandmother Paternal Uncle Sister Social History Tobacco Use Types Packs/Day Years Used Date Smoking Tobacco: Never Smokeless Tobacco: Former Tobacco Cessation:Counseling Given: No Alcohol Use Standard Drinks/Week Comments Yes 0 (1 standard drink = 0.6 oz pur e alcohol) Sex and Gender Information Value Date Recorded Sex Assigned at Not on file Gender Identity Not on file Sexual Orientation Not on file Plan of Treatment Health Maintenance Due Date Last Done Comments COLOGUARD (AGES 45-75) - COL ON CA SCREENING 1968 COLON MONITORING 1968 COLONOSCOPY - COLON CA SCREENING 1968 CT COLONOGRAPHY - COLON CA SCREENING 1968 Colorectal Cancer Screening 1968 FIT - COLON CA SCREENING 1968 FLEX SIG - COLON CA SCREENING 1968 LIPID TESTING 1968 MAMMOGRAM 1968 HIV SCREENING 1983 HEPATITIS C SCREENING 05/16/1986 DTAP/TDAP/TD VACCINES (1 - Tdap) 1987 HEPATITIS B VACCINE (1 of 3 - 19+ 3-dose series) 1987 PAP SMEAR 03/29/2017 03/29/2014 PNEUMOCOCCAL VACCINE 50+ (1 of 1 - PCV) 2018 ZOSTER VACCINE (1 of 2) 2018 COVID-19 VACCINE (1 - 2023-2 5 season) 2023 INFLUENZA VACCINE (#1) 2023 DEPRESSION SCREENING 03/30/2024 HIB VACCINE Aged Out No longer eligi ble based on patient's age to complete this topic HPV VACCINE Aged Out No longer eligi ble based on patient's age to complete this topic MENINGOCOCCAL (Group B) VACCINE Aged Out No longer eligible based on patient's age to complete this topic MENINGOCOCCAL VACCINE Aged Out No celeste espinoza eligible based on patient's age to complete this topic PNEUMOCOCCAL VACCINE Aged Out No long er eligible based on patient's age to complete this topic Care Teams Loss Prevention Specialist Relationship Specialty Start Date End Date Yeimy Nielsen MD [address] [place] [id number] PCP - General 10/21/20
--- OUTSIDE RECORDS SUMMARY | 2024-05-05 15:26 | XMS_ITS | Referral Summary ---
Author Organization [facility] [employer] Address [address] [place] [address] Care Team Providers Care Office Sweeper Name Role Phone Yeimy Nielsen MD Primary Care Provider [phone] Source Comments [facility] [employer],non-owned Affiliates and Associated Physician Practices is amultiple site organization consisting of ambulatory clinics and hospital sitesin [place], [place], [place] and [place]. This disclosure is being madepursuant to the Care Everywhere program and may not contain all information available regarding this patient. Last updated 17.[facility] [employer] Allergies No known active allergies Medications * [...] Orientation Not on file Plan of Treatment Not on file Care Teams Office Sweeper Relationship Specialty Start Date End Date Yeimy Nielsen MD [address] [place] [address] [place] [id number] [facility] - General 10/21/20
== END 2024-05-05 15:21 | disposition home or self-care (01) ==
PROVIDERS: PCP Physician Assistant; Visit Provider Physician Assistant
DX: Z12.31 Encounter for screening mammogram for malignant neoplasm of breast (principal)
CPT/HCPCS: 77063; 77067